=== PATIENT | female | born 1975 | race Caucasian/White ===

== ENCOUNTER 2020-05-22 18:07 | Emergency (ER) | payer SELFPAY ==
[2020-05-22 18:14] VITALS: BP 115/81; PULSE 110; RESP 20; O2SAT 89; BMI 23.0
[2020-05-22] MEDS: diphenhydrAMINE 50 mg/mL SDV 1mL IVP (18:20)
[2020-05-22] MEDS: LORazepam 2 mg/mL INJ 1 mL 1 MG IVP (18:21)
--- NOTE | 2020-05-22 18:26 | ED_ITS ---
HPI - Allergic Reaction General: Chief complaint: Allergic Reaction Stated complaint: allergic reaction Time Seen by Provider: 05/22/20 18:07 Source: patient Mode of arrival: ambulatory Limitations: no limitations History of Present Illness: HPI narrative: 45-year-old female states that she took Tessalon Perles roughly 30 minutes an hour ago and started having allergic reaction. She states she feels like her throat is tight and she is got swelling to her extremities and rash. She states she is quite pruritic. Denies any worsening or improving factors. Denies any fever. Denies any chest pain. MD complaint: allergic reaction Onset (ago): minute(s) Associated symptoms: Deny abdominal pain, nausea or vomiting Review of Systems Const: Denies: fever(s), chills, body aches or change in appetite Eyes: Denies: blurry vision or eye discomfort ENMT: Denies: throat pain or dental pain Card: Denies: chest pain Resp: Denies: dyspnea GI: Denies: abdominal pain, nausea, vomiting or diarrhea : Denies: dysuria Musc: Denies: neck pain or back pain Skin/Breast: Reports: rash and pruritus Neuro: Denies: headache(s) Psych: Denies: depression Delmar/Lymph: Denies: easy bruising All/Imm: Denies: urticaria Physical Exam Const: COMMON NORMALS: no acute distress, patient oriented x3 and healthy appearing HENMT: COMMON NORMALS: normocephalic and atraumatic HEAD & SCALP: normocephalic and atraumatic Eye: COMMON NORMALS: Equal, round and reactive pupils present and EOMs intact bilaterally PUPIL: Yes Equal, round and reactive pupils present Neck/C-Spine: COMMON NORMALS: full ROM and supple Chest: COMMONS NORMALS: normal inspection of the chest and normal palpation of entire chest wall Resp: COMMON NORMALS: normal respiratory effort, No retractions, No use of accessory muscles and clear to auscultation bilaterally AUSCULTATION: clear to auscultation bilaterally Cardio: COMMON NORMALS: regular rate, regular rhythm and No murmurs present (Cardio) RATE: regular rate RHYTHM: regular rhythm GI: COMMON NORMALS: Normal to inspection, nondistended, normoactive bowel tiago nds present, Soft to palpation, non-tender and no masses PALPATION: Yes Soft to palpation Extremity: COMMON NORMALS: normal to inspection and full ROM Neuro: COMMON NORMALS: patient oriented x3, moves all extremities and no focal motor deficits Psych: COMMON NORMALS: mental status grossly normal, Normal thought process present and cooperative MOOD & AFFECT: Yes anxious THOUGHT PROCESS: Normal thought process present Skin: COMMON NORMALS: no wounds NARRATIVE SKIN EXAM: Urticarial rash to extremities Course Vital Signs: Vital signs: Vital Signs Pulse Rate 94 05/22/20 19:45 Respiratory Rate 18 05/22/20 19:45 Blood Pressure 100/74 05/22/20 19:45 Pulse Oximetry 96 05/22/20 19:45 MDM - Allergic Reaction MDM Narrative: Medical decision making narrative: Patient presents here with an allergic reaction since resolved after epinephrine. Patient was observed here and has no rebound. We will place her on an EpiPen at home. She is stable for discharge is to follow-up and return if worsening. Discharge Plan Discharge Patient Disposition: Home Clinical Impression: Allergic reaction Qualifiers: Encounter type: initial encounter Qualified Code(s): T78.40XA - Allergy, unspecified, initial encounter Condition: Stable Prescriptions: New EpiPen 2-Lukasz 0.3 mg/0.3 mL auto-injector 0.3 mg IM Q30M PRN (Reason: anaphylaxis) Qty: 1 RF: 0 No Action ibuprofen 200 mg Capsule 200 - 400 mg PO Q4H PRN (Reason: PAIN/FEVER) RF: 0 albuterol sulfate 90 mcg/actuation HFA aerosol inhaler 2 puff INHALATION QID PRN (Reason: Wheezing) RF: 0 Discharge Orders: Discharge Order (Routine); Ordered 05/22/20 Ordered By: Eleazar Ye Discharge Diet: Advance as tolerated Discharge Activity: Resume usual activity Patient Instructions: Anaphylaxis (ED) Coding Level of Care Code ED Paper Baling Machine Operator for Chg Fwd Exam Comprehensive
[2020-05-22] MEDS: EPINEPHrine 1 mg/mL INJ 0.5 MG IM (18:41)
[2020-05-22 19:45] VITALS: BP 100/74; PULSE 94; RESP 18; O2SAT 96
== END 2020-05-22 20:16 | disposition home or self-care (01) ==
PROVIDERS: Emergency Provider Emergency Medicine
DX: T78.40XA Allergy, unspecified, initial encounter (principal)
CPT/HCPCS: 12345; 96372; 96374; 96375; 99282; 99283; J0171; J1200; J2060; J2930

== ENCOUNTER 2020-06-13 01:44 | Inpatient (IN) | payer SELFPAY ==
[2020-06-13] VITALS (30 sets, daily range): BP systolic 91–150; BP diastolic 57–92; PULSE 66–95; RESP 11–26; TEMP 36.4–37; O2SAT 95–100; BMI 29.7
--- NOTE | 2020-06-13 01:58 | XRR_ITS ---
PROCEDURE INFORMATION: Exam: XR Chest, 1 View Exam date and time: 06/13/2020 2:45 AM Age: 45 years old Clinical indication: Other: Overdose TECHNIQUE: Imaging protocol: XR of the chest Views: 1 view. COMPARISON: No relevant prior studies available. FINDINGS: Lungs: The lungs are clear bilaterally. Pulmonary vasculature within normal limits. Pleural space: No visible pneumothorax or pleural effusion. Heart/Mediastinum: Cardiomediastinal silhouette contour within normal limits. Bones/joints: No emergent findings identified. XR/XR chest 1V portable [id number] IMPRESSION: 1. No radiographic findings of acute cardiopulmonary disease.
--- NOTE | 2020-06-13 01:59 | ECG_ITS ---
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 Measurements Intervals Gering Rate: 79 P: 76 GA: 174 QRS: 50 QRSD: 80 T: 75 QT: 364 QTc: 418 Interpretive Statements SINUS RHYTHM No previous ECG available for comparison Electronically Signed On 06-13-2020 17:56:23 CDT by Sarah Hensley M.D. [id number]
--- NOTE | 2020-06-13 02:12 | ED_ITS ---
HPI - Overdose General: Chief Complaint: Overdose Stated Complaint: poss overdose Time Seen by Provider: 06/13/20 01:58 Source: family and police Mode of arrival: ambulatory Limitations: altered mental status History of Present Illness: HPI Narrative: Marnie is a 45-year-old female who comes in with a reported overdose by her fianc?. Patient told him that she took 12 Tylenol PM tonight. He is uncertain whether she took this at midnight or 1 AM. He believes that she may have been trying to kill herself. He does not believe she is been drinking tonight and he does not believe she is used any illicit drugs. Patient is completely uncooperative for us and police had to bring her into the hospital. Patient will not give us any history. Her GCS at times is 15 as she seems alert and oriented to things going on around her with spontaneous eye opening and moving all extremities but then when left alone she drifts off back to sleep but is easily stimulated. Patient is not cooperative and is lashing out trying to hit staff and others so she will be placed in a restraint bed for protection of herself and others. Review of Systems General: Reports: ROS unobtainable due to mental status Physical Exam Const: EXAM LIMITATIONS: altered mental status GENERAL APPEARANCE: combative and lethargic ORIENTATION/CONSCIOUSNESS: Yes lethargic OTHER: When stimulated the patient is agitated and combative trying to strike others but when left alone becomes lethargic and goes to sleep HENMT: COMMON NORMALS: normocephalic, atraumatic, EAC's normal, Normal external nose present and Normal nasal mucous membranes and turbinates present HEAD & SCALP: normocephalic and atraumatic NOSE: Normal external nose present and Normal nasal mucous membranes and turbinates present EXTERNAL AUDITORY CANAL: EAC's normal Eye: COMMON NORMALS: Equal, round and reactive pupils present, EOMs intact bilaterally and no scleral icterus PUPIL: Yes Equal, round and reactive pupils present Neck/C-Spine: COMMON NORMALS: full ROM, no lymphadenopathy, supple, no meningeal signs and no JVD Chest: COMMONS NORMALS: normal inspection of the chest and normal palpation of entire chest wall Resp: COMMON NORMALS: normal respiratory effort, No retractions, No use of accessory muscles, clear to auscultation bilaterally and percussion normal AUSCULTATION: clear to auscultation bilaterally, no crackles, no rales, no rhonchi and no wheezes PERCUSSION: percussion normal Cardio: COMMON NORMALS: no JVD, regular rate, regular rhythm, S1 normal heart sound present, S2 normal heart sound present, No gallops present (Cardio), No clicks present (Cardio), No murmurs present (Cardio) and No rub (Cardio) RATE: regular rate RHYTHM: regular rhythm HEART SOUNDS: S1 normal heart sound present and S2 normal heart sound present GI: COMMON NORMALS: Normal to inspection, nondistended, normoactive bowel sounds present, Soft to palpation, non-tender, No hepatosplenomegaly present and no masses PALPATION: Yes Soft to palpation and Yes No hepatosplenomegaly present Extremity: COMMON NORMALS: full ROM, capillary refill normal, no joint enlargement, no clubbing, cyanosis or edema, no calf tenderness and no pedal edema Neuro: FIORDALIZA COMA SCALE: document GCS findings Fiordaliza coma scale eye opening: To sound Fiordaliza coma scale verbal response: Confused [place] coma scale motor response: Localising [place] coma scale total score: 12 SENSORIUM/ORIENTATION: Yes lethargic MENINGEAL SIGNS: Yes no meningeal signs Course Vital Signs: Vital signs: Vital Signs Temperature 97.6 F 06/13/20 01:54 Pulse Rate 95 06/13/20 04:11 Respiratory Rate 16 06/13/20 04:11 Blood Pressure 91/57 06/13/20 04:11 Pulse Oximetry 95 06/13/20 04:11 MDM - Overdose MDM Narrative: Medical decision making narrative: [address] is a 45-year-old female who was supposedly overdosed on Tylenol PM's. The case was immediately discussed with poison control who felt the patient would need a 4- hour Tylenol level and it was reviewed with them it is 134 and coming down from her 2-hour level and they believe that she can be cleared from a Tylenol toxicity perspective. A 5 AM level as the patient's did not know if she took this at 12 or 1 AM is pending and Benadryl may cause slow transit but I doubt sugar level will go up but we will still check this. He does not believe that she took any illicit drugs but she does test positive for multiple illicit drugs including opiates and benzodiazepines which could be causing her sedation. She continues to have a patent airway with a GCS of 14-12. She arouses to voice and she will speak but not answer questions so we cannot ascertain if she is confused and she will follow some basic commands. I have reviewed the case with Dr. De Leon who agrees to come to admit the patient to the ICU until she is medically cleared and will consult Dr. Boyle for transfer to the MPU for suicidal ideation after this is completed. The patient has been placed under 96-hour hold. Lab Data: Attestation: I reviewed the patient's lab results. Labs: Lab Results 06/13/20 06/13/20 06/13/20 Range/Units 02:06 02:14 02:14 WBC (4.0-10.0) 10^3/ uL RBC (4.1-5.3) 10^6/u L Hgb (11.5-15.3) g/dL Hct (37.0-47.0) % MCV (81-99) fL MCH (28.0-34.0) pg MCHC (30.0-36.0) g/dL RDW (12.1-15.1) % Plt Count (130-400) 10^3/c mm MPV (7.4-10.4) fL Neut % (Auto) % Lymph % (Auto) % [place] % (Auto) % Eos % (Auto) % Baso % (Auto) % Neut # (Auto) (1.8-7.7) 10^3/u L Lymph # (Auto) (0.8-4.8) 10^3/u L [place] # (Auto) (0.2-0.9) 10^3/u L Eos # (Auto) (0.0-0.8) 10^3/u L Baso # (Auto) (0.0-0.1) 10^3/u L Nucleated RBC % (a uto) % Nucleated RBCs # /100WBC PT (12.1-14.9) SECO NDS INR (0.8-1.2) APTT (23.9-36.7) SECO NDS Specimen Type Arterial Sample Site Brachial, left ABG pH 7.41 (7.35-7.45) ABG pCO2 33.9 L (35-45) mmHg ABG pO2 86.9 (80.0-100.0) mmH g ABG HCO3 21.2 L (22-26) mmol/L ABG O2 Saturation 97.8 ABG Base Excess -2.8 L (-2.0-2.0) mmol/ L Red Test N/a A-a O2 Gradient 2.5 L (5-10) mmHg Hematocrit 40.8 (37-47) % Hgb O2 Saturation 92.5 L (95-100) % Carboxyhemoglobin 4.9 (0.4-20.1) %THgb Methemoglobin 0.5 (0.4-1.5) % Total Hemoglobin 13.3 (12-16) g/dL Sodium 140.0 (131-143) mmol/L Potassium 3.4 L (3.5-5.0) mmol/L Glucose 118.0 H (70-115) mg/dL Ionized Calcium 1.2 (1.1-1.4) mmol/L O2 Delivery Device Room air FiO2 21.0 % Roller Skates Assembler ID Harkr Chloride (98-107) mmol/L Carbon Dioxide (22-29) mmol/L Anion Gap (5-19) BUN (6-20) mg/dL Creatinine (0.5-0.9) mg/dL GFR Calculation (90-130) mL/min Calculated Osmolal ity (285-295) mOsm/k g Calcium (8.5-10.5) mg/dL Magnesium (1.7-2.3) mg/dL Total Bilirubin (0.15-1.2) mg/dL AST (0-32) U/L ALT (0-33) U/L Alkaline Phosphata se (35-105) IU/L Creatine Kinase (26-192) U/L Troponin T Baselin e (0-10) ng/L Troponin T 120 Min [place] (0-10) ng/L Delta Troponin T (0-10) ABS# Total Protein (6.6-8.7) g/dL Albumin (3.5-5.2) g/dL Globulin (1.3-4.6) g/dL TSH (0.27-4.20) uIU/ mL HCG, Qual (Negative) Urine Color Yellow (Yellow) Urine Appearance Clear (CLEAR) Urine pH 5 (5-7) Ur Specific Gravit y 1.030 (1.005-1.030) Urine Protein Neg (Negative) Urine Glucose (UA) Norm (Normal) Urine Ketones Negative (Negative) Urine Blood Neg (Negative) Urine Nitrate Negative (Negative) Urine Bilirubin Neg (Negative) Urine Urobilinogen 1 H (Negative) mg/dL Ur Leukocyte Marisela ase Negative (Negative) Salicylates (3-10) mg/dL Urine Opiates Scre en Positive H (Negative) ng/mL Acetaminophen (10-30) ug/mL Ur Barbiturates Sc reen Negative (Negative) ng/mL Phenytoin (10-20) ug/mL Valproic Acid (50-100) ug/mL Carbamazepine (4.0-12.0) ug/mL Ur Phencyclidine S crn Negative (Negative) ng/mL Ur Amphetamines Sc reen Positive H (Negative) ng/mL U Benzodiazepines Scrn Positive H (Negative) ng/mL [place] (0.6-1.2) mmol/L Urine Cocaine Scre en Negative (Negative) ng/mL U Marijuana (THC) Screen Negative (Negative) ng/mL Ethyl Alcohol (0-10) mg/dL Serum Ketones (Negative) 06/13/20 06/13/20 06/13/20 Range/Units 02:15 02:15 02:15 WBC 10.4 H (4.0-10.0) 10^3/ uL RBC 4.69 (4.1-5.3) 10^6/u L Hgb 14.1 (11.5-15.3) g/dL Hct 42.8 (37.0-47.0) % MCV 91.3 (81-99) fL MCH 30.1 (28.0-34.0) pg MCHC 32.9 (30.0-36.0) g/dL RDW 12.6 (12.1-15.1) % Plt Count 321 (130-400) 10^3/c mm MPV 10.8 H (7.4-10.4) fL Neut % (Auto) 52.1 % Lymph % (Auto) 38.5 % [place] % (Auto) 6.5 % Eos % (Auto) 1.9 % Baso % (Auto) 0.7 % Neut # (Auto) 5.42 (1.8-7.7) 10^3/u L Lymph # (Auto) 4.0 (0.8-4.8) 10^3/u L [place] # (Auto) 0.7 (0.2-0.9) 10^3/u L Eos # (Auto) 0.2 (0.0-0.8) 10^3/u L Baso # (Auto) 0.1 (0.0-0.1) 10^3/u L Nucleated RBC % (a uto) 0 % Nucleated RBCs # 0.0 /100WBC PT 12.80 (12.1-14.9) SECO NDS INR 0.94 (0.8-1.2) APTT 26.0 (23.9-36.7) SECO NDS Specimen Type Sample Site ABG pH (7.35-7.45) ABG pCO2 (35-45) mmHg ABG pO2 (80.0-100.0) mmH g ABG HCO3 (22-26) mmol/L ABG O2 Saturation ABG Base Excess (-2.0-2.0) mmol/ L Red Test A-a O2 Gradient (5-10) mmHg Hematocrit (37-47) % Hgb O2 Saturation (95-100) % Carboxyhemoglobin (0.4-20.1) %THgb Methemoglobin (0.4-1.5) % Total Hemoglobin (12-16) g/dL Sodium 138 (131-143) mmol/L Potassium 3.9 (3.5-5.0) mmol/L Glucose 113 (70-115) mg/dL Ionized Calcium (1.1-1.4) mmol/L O2 Delivery Device FiO2 % Roller Skates Assembler ID Chloride 103 (98-107) mmol/L Carbon Dioxide 20 L (22-29) mmol/L Anion Gap 18.9 (5-19) BUN 19 (6-20) mg/dL Creatinine 0.8 (0.5-0.9) mg/dL GFR Calculation 76.9 L (90-130) mL/min Calculated Osmolal ity 289 (285-295) mOsm/k g Calcium 9.4 (8.5-10.5) mg/dL Magnesium 1.9 (1.7-2.3) mg/dL Total Bilirubin 0.2 (0.15-1.2) mg/dL AST 22 (0-32) U/L ALT 20 (0-33) U/L Alkaline Phosphata se 99 (35-105) IU/L Creatine Kinase 136 (26-192) U/L Troponin T Baselin e (0-10) ng/L Troponin T 120 Min [place] (0-10) ng/L Delta Troponin T (0-10) ABS# Total Protein 7.1 (6.6-8.7) g/dL Albumin 4.4 (3.5-5.2) g/dL Globulin 2.7 (1.3-4.6) g/dL TSH 1.90 (0.27-4.20) uIU/ mL HCG, Qual (Negative) Urine Color (Yellow) Urine Appearance (CLEAR) Urine pH (5-7) Ur Specific Gravit y (1.005-1.030) Urine Protein (Negative) Urine Glucose (UA) (Normal) Urine Ketones (Negative) Urine Blood (Negative) Urine Nitrate (Negative) Urine Bilirubin (Negative) Urine Urobilinogen (Negative) mg/dL Ur Leukocyte Marisela ase (Negative) Salicylates < 0.3 L (3-10) mg/dL Urine Opiates Scre en (Negative) ng/mL Acetaminophen 150.4 H* (10-30) ug/mL Ur Barbiturates Sc reen (Negative) ng/mL Phenytoin (10-20) ug/mL Valproic Acid (50-100) ug/mL Carbamazepine (4.0-12.0) ug/mL Ur Phencyclidine S crn (Negative) ng/mL Ur Amphetamines Sc reen (Negative) ng/mL U Benzodiazepines Scrn (Negative) ng/mL [place] (0.6-1.2) mmol/L Urine Cocaine Scre en (Negative) ng/mL U Marijuana (THC) Screen (Negative) ng/mL Ethyl Alcohol < 10 (0-10) mg/dL Serum Ketones Negative (Negative) 06/13/20 06/13/20 06/13/20 Range/Units 02:15 02:15 04:10 WBC (4.0-10.0) 10^3/ uL RBC (4.1-5.3) 10^6/u L Hgb (11.5-15.3) g/dL Hct (37.0-47.0) % MCV (81-99) fL MCH (28.0-34.0) pg MCHC (30.0-36.0) g/dL RDW (12.1-15.1) % Plt Count (130-400) 10^3/c mm MPV (7.4-10.4) fL Neut % (Auto) % Lymph % (Auto) % [place] % (Auto) % Eos % (Auto) % Baso % (Auto) % Neut # (Auto) (1.8-7.7) 10^3/u L Lymph # (Auto) (0.8-4.8) 10^3/u L [place] # (Auto) (0.2-0.9) 10^3/u L Eos # (Auto) (0.0-0.8) 10^3/u L Baso # (Auto) (0.0-0.1) 10^3/u L Nucleated RBC % (a uto) % Nucleated RBCs # /100WBC PT (12.1-14.9) SECO NDS INR (0.8-1.2) APTT (23.9-36.7) SECO NDS Specimen Type Sample Site ABG pH (7.35-7.45) ABG pCO2 (35-45) mmHg ABG pO2 (80.0-100.0) mmH g ABG HCO3 (22-26) mmol/L ABG O2 Saturation ABG Base Excess (-2.0-2.0) mmol/ L Red Test A-a O2 Gradient (5-10) mmHg Hematocrit (37-47) % Hgb O2 Saturation (95-100) % Carboxyhemoglobin (0.4-20.1) %THgb Methemoglobin (0.4-1.5) % Total Hemoglobin (12-16) g/dL Sodium (131-143) mmol/L Potassium (3.5-5.0) mmol/L Glucose (70-115) mg/dL Ionized Calcium (1.1-1.4) mmol/L O2 Delivery Device FiO2 % Roller Skates Assembler ID Chloride (98-107) mmol/L Carbon Dioxide (22-29) mmol/L Anion Gap (5-19) BUN (6-20) mg/dL Creatinine (0.5-0.9) mg/dL GFR Calculation (90-130) mL/min Calculated Osmolal ity (285-295) mOsm/k g Calcium (8.5-10.5) mg/dL Magnesium (1.7-2.3) mg/dL Total Bilirubin (0.15-1.2) mg/dL AST (0-32) U/L ALT (0-33) U/L Alkaline Phosphata se (35-105) IU/L Creatine Kinase (26-192) U/L Troponin T Baselin e 9 (0-10) ng/L Troponin T 120 Min [place] (0-10) ng/L Delta Troponin T (0-10) ABS# Total Protein (6.6-8.7) g/dL Albumin (3.5-5.2) g/dL Globulin (1.3-4.6) g/dL TSH (0.27-4.20) uIU/ mL HCG, Qual Negative (Negative) Urine Color (Yellow) Urine Appearance (CLEAR) Urine pH (5-7) Ur Specific Gravit y (1.005-1.030) Urine Protein (Negative) Urine Glucose (UA) (Normal) Urine Ketones (Negative) Urine Blood (Negative) Urine Nitrate (Negative) Urine Bilirubin (Negative) Urine Urobilinogen (Negative) mg/dL Ur Leukocyte Marisela ase (Negative) Salicylates (3-10) mg/dL Urine Opiates Scre en (Negative) ng/mL Acetaminophen (10-30) ug/mL Ur Barbiturates Sc reen (Negative) ng/mL Phenytoin 1.1 L (10-20) ug/mL Valproic Acid 2.8 L (50-100) ug/mL Carbamazepine 2.0 L (4.0-12.0) ug/mL Ur Phencyclidine S crn (Negative) ng/mL Ur Amphetamines Sc reen (Negative) ng/mL U Benzodiazepines Scrn (Negative) ng/mL [place] 0.1 L (0.6-1.2) mmol/L Urine Cocaine Scre en (Negative) ng/mL U Marijuana (THC) Screen (Negative) ng/mL Ethyl Alcohol (0-10) mg/dL Serum Ketones (Negative) 06/13/20 06/13/20 Range/Units 04:10 04:10 WBC (4.0-10.0) 10^3/ uL RBC (4.1-5.3) 10^6/u L Hgb (11.5-15.3) g/dL Hct (37.0-47.0) % MCV (81-99) fL MCH (28.0-34.0) pg MCHC (30.0-36.0) g/dL RDW (12.1-15.1) % Plt Count (130-400) 10^3/c mm MPV (7.4-10.4) fL Neut % (Auto) % Lymph % (Auto) % [place] % (Auto) % Eos % (Auto) % Baso % (Auto) % Neut # (Auto) (1.8-7.7) 10^3/u L Lymph # (Auto) (0.8-4.8) 10^3/u L [place] # (Auto) (0.2-0.9) 10^3/u L Eos # (Auto) (0.0-0.8) 10^3/u L Baso # (Auto) (0.0-0.1) 10^3/u L Nucleated RBC % (a uto) % Nucleated RBCs # /100WBC PT (12.1-14.9) SECO NDS INR (0.8-1.2) APTT (23.9-36.7) SECO NDS Specimen Type Sample Site ABG pH (7.35-7.45) ABG pCO2 (35-45) mmHg ABG pO2 (80.0-100.0) mmH g ABG HCO3 (22-26) mmol/L ABG O2 Saturation ABG Base Excess (-2.0-2.0) mmol/ L Red Test A-a O2 Gradient (5-10) mmHg Hematocrit (37-47) % Hgb O2 Saturation (95-100) % Carboxyhemoglobin (0.4-20.1) %THgb Methemoglobin (0.4-1.5) % Total Hemoglobin (12-16) g/dL Sodium (131-143) mmol/L Potassium (3.5-5.0) mmol/L Glucose (70-115) mg/dL Ionized Calcium (1.1-1.4) mmol/L O2 Delivery Device FiO2 % Roller Skates Assembler ID Chloride (98-107) mmol/L Carbon Dioxide (22-29) mmol/L Anion Gap (5-19) BUN (6-20) mg/dL Creatinine (0.5-0.9) mg/dL GFR Calculation (90-130) mL/min Calculated Osmolal ity (285-295) mOsm/k g Calcium (8.5-10.5) mg/dL Magnesium (1.7-2.3) mg/dL Total Bilirubin (0.15-1.2) mg/dL AST (0-32) U/L ALT (0-33) U/L Alkaline Phosphata se (35-105) IU/L Creatine Kinase (26-192) U/L Troponin T Baselin e (0-10) ng/L Troponin T 120 Min [place] 9.35 (0-10) ng/L Delta Troponin T 0.35 (0-10) ABS# Total Protein (6.6-8.7) g/dL Albumin (3.5-5.2) g/dL Globulin (1.3-4.6) g/dL TSH (0.27-4.20) uIU/ mL HCG, Qual (Negative) Urine Color (Yellow) Urine Appearance (CLEAR) Urine pH (5-7) Ur Specific Gravit y (1.005-1.030) Urine Protein (Negative) Urine Glucose (UA) (Normal) Urine Ketones (Negative) Urine Blood (Negative) Urine Nitrate (Negative) Urine Bilirubin (Negative) Urine Urobilinogen (Negative) mg/dL Ur Leukocyte Marisela ase (Negative) Salicylates (3-10) mg/dL Urine Opiates Scre en (Negative) ng/mL Acetaminophen 134.1 H* (10-30) ug/mL Ur Barbiturates Sc reen (Negative) ng/mL Phenytoin (10-20) ug/mL Valproic Acid (50-100) ug/mL Carbamazepine (4.0-12.0) ug/mL Ur Phencyclidine S crn (Negative) ng/mL Ur Amphetamines Sc reen (Negative) ng/mL U Benzodiazepines Scrn (Negative) ng/mL [place] (0.6-1.2) mmol/L Urine Cocaine Scre en (Negative) ng/mL U Marijuana (THC) Screen (Negative) ng/mL Ethyl Alcohol (0-10) mg/dL Serum Ketones (Negative) Imaging Data^: CT Head: Radiologist's impression: [address] [id number] [address] Scan Report Signed Patient: Marnie Hampton Unit #: [id number] : 1975 Age/Sex: 45 / F ADM Date: 06/13/20 Loc: ER Room/Bed: Attending Dr: Ordering Provider/Ordering MD: Sonia Rothman DO Date of Service: 06/13/20 Procedure(s): CT head wo con* [id number] Accession Number(s): [id number] Report Number: [id number] PROCEDURE INFORMATION: Exam: CT Head Without Contrast Exam date and time: 06/13/2020 2:11 AM Age: 45 years old Clinical indication: Altered mental status/memory loss; Confusion or disorientation; Prior surgery TECHNIQUE: Imaging protocol: Computed tomography of the head without contrast. Radiation optimization: All CT scans at this facility use at least one of these dose optimization techniques: automated exposure control; mA and/or kV adjustment per patient size (includes targeted exams where dose is matched to clinical indication); or iterative reconstruction. COMPARISON: CT head wo con* [id number] 05/27/2018 8:40 PM RADIATION DOSE METRICS: Total DLP (mGy-cm): 824.66 FINDINGS: Brain: There are no areas of abnormally increased or decreased brain parenchymal attenuation. No abnormal intra-axial or extra-axial fluid collections are identified. There is no midline shift. No intracranial hemorrhage identified. Ventricles: The ventricular system is within normal limits for size and configuration. Bones/joints: Status post left mastoidectomy. Sinuses: Visualized sinuses are unremarkable. No fluid levels. Mastoid air cells: Status post left mastoidectomy. Soft tissues: Unremarkable. CT/CT head wo con* [id number] IMPRESSION: 1. No acute intracranial abnormality identified. Radiation Dose CTDIVOL = (mGy): DLP = 824.66 (mGy-cm) Dictated By: Olivier Ulrich MD Signed By: Olivier Ulrich MD Signed Date/Time: 06/13/20358 DD/ 7 CXR: Attestation: I personally reviewed and interpreted this imaging study as follows: My impression: No acute cardiopulmonary findings. EKG Data^: EKG 1: Attestation: I personally reviewed and interpreted this EKG as follows: EKG interpretation date: 06/13/20 EKG interpretation time: 02:26 Interpretation: Normal sinus rhythm at 79 beats a minute, normal axis, no blocks, normal intervals, nonspecific ST and T wave changes. Discharge Plan Discharge Patient Disposition: Admitted As Inpatient Clinical Impression: Drug overdose Qualifiers: Encounter type: initial encounter Injury intent: intentional self-harm Qualified Code(s): T50.902A - Poisoning by unspecified drugs, medicaments and biological substances, intentional self-harm, initial encounter Condition: Stable Coding Level of Care Code ED Software Sales Representative for Chg Fwd Exam Comprehensive
[2020-06-13 02:16] LABS: ABG PCO2 33.9 mmHg (35-45); ABG PH Result 7.41 (7.35-7.45); Alveolar-Arterial Oxygen Gradi 2.5 mmHg (5-10); Arterial Blood Gas Hematocrit 40.8 % (37-47); Base Excess ABG -2.8 mmol/L (-2.0-2.0); Blood Gas Operator Identificat HARKR; Blood Gas Sample Site Brachial, left; Blood Gas Sample Type Arterial; Carboxyhemoglobin 4.9 %THgb (0.4-20.1); HCO3 ABG 21.2 mmol/L (22-26); HGB O2 Sat 92.5 % (95-100); Ionized Calcium Level - ABG 1.2 mmol/L (1.1-1.4); Methemoglobin 0.5 % (0.4-1.5); Oxygen Device ROOM AIR; Oxygen Saturation ABG 97.8; PO2 ABG 86.9 mmHg (80.0-100.0); Potassium Level - ABG 3.4 mmol/L (3.5-5.0); Total Hemoglobin 13.3 g/dL (12-16)
[2020-06-13 02:44] LABS: INR 0.94 (0.8-1.2)
[2020-06-13 02:46] LABS: HCG, Serum Qual Negative (Negative); Ketone (Acetest) Serum Negative (Negative)
[2020-06-13 02:47] LABS: Basophils # 0.1 10^3/uL (0.0-0.1); Basophils % 0.7 %; Eosinophils # 0.2 10^3/uL (0.0-0.8); Eosinophils % 1.9 %; Hematocrit 42.8 % (37.0-47.0); Hemoglobin 14.1 g/dL (11.5-15.3); Lymphocytes % 38.5 %; Mean Corpuscular HGB Conc 32.9 g/dL (30.0-36.0); Mean Corpuscular Hemoglobin 30.1 pg (28.0-34.0); Mean Corpuscular Volume 91.3 fL (81-99); Mean Platelet Volume 10.8 fL (7.4-10.4); Monocytes # 0.7 10^3/uL (0.2-0.9); Monocytes % 6.5 %; Neutrophils # 5.42 10^3/uL (1.8-7.7); Neutrophils % 52.1 %; Nucleated Red Blood Cells % 0 %; Platelet Count 321 10^3/cmm (130-400); Red Blood Count 4.69 10^6/uL (4.1-5.3); Red Cell Distribution Width 12.6 % (12.1-15.1); White Blood Count 10.4 10^3/uL (4.0-10.0)
[2020-06-13 02:54] LABS: Add Urine Microscopic? NO
[2020-06-13 02:56] LABS: Troponin(5th) Baseline 9 ng/L (0-10)
[2020-06-13 03:03] LABS: Bilirubin Urine Neg (Negative); Blood Urine Neg (Negative); Glucose Urine UA Norm (Normal); Ketones Urine Negative (Negative); Leukocyte Esterase Urine Negative (Negative); Nitrate Urine Negative (Negative); Protein Urine Neg (Negative); Urine Appearance Clear (CLEAR); Urine Color Yellow (Yellow); Urobilinogen Urine 1 mg/dL (Negative); pH Urine 5 (5-7)
[2020-06-13 03:03] LABS: Alanine Aminotransferase 20 U/L (0-33); Albumin Level 4.4 g/dL (3.5-5.2); Alkaline Phosphatase 99 IU/L (35-105); Blood Urea Nitrogen 19 mg/dL (6-20); Calcium 9.4 mg/dL (8.5-10.5); Carbon Dioxide 20 mmol/L (22-29); Chloride 103 mmol/L (98-107); Creatine Phosphokinase 136 U/L (26-192); Globulin 2.7 g/dL (1.3-4.6); Glomerular Filtration Rate 76.9 mL/min (90-130); Glucose 113 mg/dL (65-115); Magnesium 1.9 mg/dL (1.7-2.3); Osmolality Calculated 289 mOsm/kg (285-295); Sodium 138 mmol/L (136-145); Total Bilirubin 0.2 mg/dL (0.15-1.2); Total Protein 7.1 g/dL (6.6-8.7)
[2020-06-13 03:04] LABS: Amphetamines Screen Urine Positive (Negative); Barbiturates Screen Urine Negative (Negative); Benzodiazepines Screen Urine Positive (Negative); Cocaine Screen Urine Negative (Negative); Opiate Screen Urine Positive (Negative); PCP Screen Urine Negative (Negative); THC Screen Urine Negative (Negative)
[2020-06-13] MEDS: sodium chloride 0.9% 1,000 ML 999 ML IV (03:06)
[2020-06-13] MEDS: sodium chloride 0.9% 1,000 ML 100 ML IV (03:06)
--- NOTE | 2020-06-13 03:06 | PC.NURSE ---
This rn was in the room, when PD brought the patient in, patient was combative and uncooperative, Dr. Rothman gave order for restraint bed, patient was restrained, IV and blood drawn, Moustapha started with dentist/owner, patient taken to CT, patient is now sleeping comfortable in restraint bed
[2020-06-13 03:09] LABS: Alcohol Level < 10 mg/dL (0-10); Salicylate < 0.3 mg/dL (3-10)
[2020-06-13 03:10] LABS: Anion Gap 18.9 (5-19); Aspartate Amino Transferase 22 U/L (0-32); Potassium 3.9 mmol/L (3.5-5.1)
[2020-06-13 03:11] LABS: Acetaminophen 150.4 ug/mL (10-30)
--- NOTE | 2020-06-13 04:10 | PC.SOCIAL ---
Unable to do initial psych assessment in the ED. Patient is currently in a restraint bed after being aggressive and uncooperative with staff. Her boyfriend Ann Gamez whom she lives with completed an affidavit. He reported patient acting strangely and he wondered if she had taken something.
[2020-06-13 04:35] LABS: Troponin 5 2HR 9.35 ng/L (0-10); Troponin 5 2HR Delta 0.35 ABS# (0-10)
[2020-06-13 04:36] LABS: Acetaminophen 134.1 ug/mL (10-30)
[2020-06-13 04:45] LABS: Lithium 0.1 mmol/L (0.6-1.2); Phenytoin Dilantin 1.1 ug/mL (10-20); Valproic Acid Level 2.8 ug/mL (50-100)
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
[2020-06-13] MEDS: naloxone 0.4 mg/ml SDV IVP (05:40)
--- NOTE | 2020-06-13 06:00 | PC.NURSE ---
Admit Note Arrived to ICU via ER lesli at this time. Pt drowsy and withdrawls from staff with any stimulation. Tremors noted, yelling out im cold . Pt not cooperative with placing on monitor, does not follow nursing staff commands. Seizure, aspiration, and SI precautions in place. 1:1 sitter at bedside.
--- NOTE | 2020-06-13 06:14 | PC.NURSE ---
Neuro Assessment assessment limited. pt is drowsy and non-cooperative and will not follow commands. awakens to verbal and touch stimulation. Observed movements of all extremities. Withdraws from nurse, curls up in position. tremors observed when stimulated.
[2020-06-13 06:18] LABS: Acetaminophen 110.3 ug/mL (10-30)
[2020-06-13] MEDS: dextrose 5%-sod chloride 0.9% 1,000 ML 75 ML IV ×2 (06:28→18:23)
[2020-06-13] MEDS: enoxaparin 40 mg/0.4 mL Syringe SUBCUT (06:28)
[2020-06-13 07:31] LABS: Thyroid Stimulating Hormone 1.27 uIU/mL (0.27-4.20)
[2020-06-13 08:23] LABS: Procalcitonin 0.03 ng/mL (0-0.5)
[2020-06-13 08:33] LABS: Creatine Phosphokinase 105 U/L (26-192)
--- NOTE | 2020-06-13 09:20 | PC.NURSE ---
unable to do neuro assessment d/t. pt. being uncooperative. lab in this am. blood drawn with much resistance. moves all ext. but doesnt follow commands at this time.
--- NOTE | 2020-06-13 10:00 | ECG_ITS ---
[facility] Test Date: 2020-06-13 Pat Name: Marnie Hampton Department: Room: [facility] Gender: Female Supervisor Loading: : 1975 Requested By: William Ulrich Order Number: [id number] Vianey MD: Sarah Hensley M.D. Measurements Intervals [place] Rate: 67 P: 72 MN: 207 QRS: 43 QRSD: 77 T: 76 QT: 377 QTc: 400 Interpretive Statements SINUS RHYTHM Compared to ECG 06/13/2020 02:26:55 No significant changes Electronically Signed On 06-13-2020 18:06:00 CDT by Sarah Hensley M.D. [id number]
[2020-06-13 10:12] LABS: Troponin 5 6HR 8.85 ng/L (0-10)
[2020-06-13 10:27] LABS: Troponin 5 6HR Delta -0.15 ng/L (0-12)
--- NOTE | 2020-06-13 10:45 | PC.NURSE ---
continues not following commands. does move all extrems. wont talk, or open eyes.
--- NOTE | 2020-06-13 11:50 | PC.NURSE ---
will open eyes now. back to sleep quickly. denies knowing what happened, but does know she is in hospital
--- NOTE | 2020-06-13 12:02 | PM.PN ---
Subjective Subjective: Interval history: She appears calm, but is actively sleeping, and to try to wake her up, pulls back and covers herself more with the blanket. Did not wake up to her name or shoulder shake. Vitals/I&O/Wt Last Vital Signs Temp 97.7 F 06/13/20 05:45 Pulse 75 06/13/20 10:00 Resp 15 06/13/20 10:00 BP 115/67 06/13/20 10:00 Pulse Ox 97 06/13/20 10:00 06/12/20 06/13/20 06/13/20 22:59 06:59 14:59 Intake Total 1000 / 1000 Balance 1000 / 1000 Weight last 48 hrs Weight 75.977 kg Physical Exam Const: COMMON NORMALS: no acute distress GENERAL APPEARANCE: disheveled (Feet are soiled from walking barefoot. ) OTHER: No seizure like activity. No tremor. HENMT: COMMON NORMALS: oropharynx normal Eye: OTHER: Squints her eyes shut when attempting to look at her pupils. Neck/C-Spine: COMMON NORMALS: no JVD Resp: COMMON NORMALS: normal respiratory effort and clear to auscultation bilaterally AUSCULTATION: clear to auscultation bilaterally Cardio: COMMON NORMALS: no JVD, regular rhythm, S1 normal heart sound present, S2 normal heart sound present and No murmurs present (Cardio) RHYTHM: regular rhythm HEART SOUNDS: S1 normal heart sound present and S2 normal heart sound present GI: COMMON NORMALS: Normal to inspection, nondistended, normoactive bowel sounds present, Soft to palpation and non-tender PALPATION: Yes Soft to palpation Extremity: COMMON NORMALS: no joint enlargement and no pedal edema Neuro: COMMON NORMALS: moves all extremities Skin: COMMON NORMALS: no rashes or lesions noted GENERAL SKIN EXAM: no rashes or lesions noted Urinary Catheter Management^: Gerard: Cath Placed During This Visit: yes Reason for Continuing Indwelling Catheter: Accurate Measurement of Urinary Output in Critically Ill Patients Urinary Catheter Date of Insertion: 06/13/20 Urinary Catheter Time of Insertion: 02:30 Data : 06/13/20 02:15 06/13/20 02:15 A&P Assessment and plan (1) Toxic metabolic encephalopathy: I have tried both numbers we have available for her significant other Mr. Gamez, but 1 numbers disconnected, and the other number there is no answer and no answering machine. Monitor for any withdrawal given concern for benzodiazepine, opioid, and amphetamine use. At this time continue supportive care and monitoring in ICU. Vital signs are stable. Liver, kidney function is remaining good. -Acetaminophen level decreasing. Would stop monitoring. -CT of the head negative for acute abnormalities, chest x-ray unremarkable for pneumonia, UA negative for UTI, hemoglobin 14.1, INR 0.94, pH 7.41, -Bicarb is low at 20 -Suicide precautions, one-to-one sitter. Psychiatry assessment once mental status improves and able to communicate. -Neurochecks, seizure precautions, aspiration precautions -Gentle IV hydration -Monitor CBC, CMP, mag, [place] -Telemetry monitoring -Monitor respiratory status closely -Monitor GCS closely -Poison control has been contacted Sunshine Gamez [phone] -Full code -Lovenox for DVT prophylaxis Status: Acute (2) Drug overdose: Status: Acute Qualifiers: Encounter type: initial encounter Injury intent: intentional self-harm Qualified Code(s): T50.902A - Poisoning by unspecified drugs, medicaments and biological substances, intentional self-harm, initial encounter (3) Opiate overdose: Status: Acute (4) Acetaminophen overdose: Status: Acute (5) Amphetamine abuse: Status: Acute (6) Benzodiazepine abuse: Status: Acute (7) Suicide attempt: Status: Acute Attestations Medical Necessity Statement*: Continue admission for assessment and management following medication overdose in a suicide attempt, possible other drug use, monitor condition and for withdrawal in ICU, supportive care with one-to-one sitter. Coding Level of Care Code Acute Dumper Bailer Operator for Edward Chapin Diagnoses Toxic metabolic encephalopathy G92 Drug overdose T50.902A Encounter type: initial encounter Injury intent: intentional self-harm Opiate overdose T40.601A Acetaminophen overdose T39.1X1A Amphetamine abuse F15.10 Benzodiazepine abuse F13.10 Suicide attempt T14.91XA
--- NOTE | 2020-06-13 12:49 | PC.NURSE ---
pt awakened with tactile stimulation. answered [facility]. when they were called she had'nt had any scripts filled there. same was for [facility] as was listed as her preferred pharm. she also stated she didnt have any prescriptions filled.
--- NOTE | 2020-06-13 15:01 | PC.NURSE ---
unable to confirm meds at this time. [facility] had not filled any for her.
[2020-06-14] VITALS (16 sets, daily range): BP systolic 120–166; BP diastolic 75–103; PULSE 61–86; RESP 14–29; TEMP 36.4–37.2; O2SAT 96–99; BMI 29.5
--- NOTE | 2020-06-14 01:21 | P.EN_ITS ---
Event Note Event Note: Patient was examined this evening, she is alert oriented x3, answering questions appropriately, a bit drowsy as it is 12 AM, vitals within normal limits, no acute telemetry events, no seizure-like events, no aggression events, will move patient to the CSU with telemetry, suicide precautions, one-t o-one sitter
--- NOTE | 2020-06-14 02:46 | PC.NURSE ---
Patient received from ICU via bed. Report received from EMMA Alaniz. Patient resting on left side. Opens eyes to stimuli with no verbal response at present. 1:1 sitter present at bedside. Gerard catheter present and patent. No distress observed. Assessment completed as documented.
--- NOTE | 2020-06-14 06:00 | ECG_ITS ---
[facility] Test Date: 2020-06-14 Pat Name: Marnie Hampton Department: Room: 111 Gender: Female Cutting Torch Operator: : 1975 Requested By: William Ulrich Order Number: [id number] Vianey MD: Sarah Hensley M.D. Measurements Intervals [place] Rate: 69 P: 64 NM: 221 QRS: 44 QRSD: 78 T: 71 QT: 367 QTc: 395 Interpretive Statements SINUS RHYTHM WITH SINUS ARRHYTHMIA WITH FIRST DEGREE AV BLOCK Compared to ECG 06/13/2020 11:03:46 First degree AV block now present Electronically Signed On 06-14-2020 18:32:28 CDT by Sarah Hensley M.D. [id number]
[2020-06-14] MEDS: enoxaparin 40 mg/0.4 mL Syringe SUBCUT (06:02)
[2020-06-14 06:05] LABS: Basophils # 0.1 10^3/uL (0.0-0.1); Basophils % 0.7 %; Eosinophils # 0.2 10^3/uL (0.0-0.8); Eosinophils % 2.1 %; Hematocrit 39.6 % (37.0-47.0); Hemoglobin 12.6 g/dL (11.5-15.3); Lymphocytes # 2.7 10^3/uL (0.8-4.8); Lymphocytes % 35.7 %; Mean Corpuscular HGB Conc 31.8 g/dL (30.0-36.0); Mean Corpuscular Hemoglobin 29.2 pg (28.0-34.0); Mean Corpuscular Volume 91.9 fL (81-99); Mean Platelet Volume 10.4 fL (7.4-10.4); Monocytes # 0.6 10^3/uL (0.2-0.9); Monocytes % 7.5 %; Neutrophils # 4.04 10^3/uL (1.8-7.7); Neutrophils % 53.9 %; Nucleated Red Blood Cells % 0 %; Platelet Count 281 10^3/cmm (130-400); Red Blood Count 4.31 10^6/uL (4.1-5.3); Red Cell Distribution Width 12.6 % (12.1-15.1); White Blood Count 7.5 10^3/uL (4.0-10.0)
[2020-06-14 06:25] LABS: Alanine Aminotransferase 20 U/L (0-33); Albumin Level 3.3 g/dL (3.5-5.2); Alkaline Phosphatase 80 IU/L (35-105); Anion Gap 11.4 (5-19); Aspartate Amino Transferase 18 U/L (0-32); Blood Urea Nitrogen 12 mg/dL (6-20); Calcium 8.6 mg/dL (8.5-10.5); Carbon Dioxide 19 mmol/L (22-29); Chloride 109 mmol/L (98-107); Globulin 2.1 g/dL (1.3-4.6); Glomerular Filtration Rate 89.7 mL/min (90-130); Glucose 94 mg/dL (65-115); Magnesium 1.9 mg/dL (1.7-2.3); Osmolality Calculated 282 mOsm/kg (285-295); Phosphorus 2.2 mg/dL (2.5-4.5); Potassium 3.4 mmol/L (3.5-5.1); Sodium 136 mmol/L (136-145); Total Bilirubin 0.3 mg/dL (0.15-1.2); Total Protein 5.4 g/dL (6.6-8.7)
[2020-06-14 06:28] LABS: Lactic Sepsis W/Reflex 0.5 mmol/L (0.5-2.2)
--- NOTE | 2020-06-14 07:00 | XRR_ITS ---
PROCEDURE INFORMATION: Exam: XR Chest, 1 View Exam date and time: 06/13/2020 11:59 PM Age: 45 years old Clinical indication: Shortness of breath; Additional info: SOB TECHNIQUE: Imaging protocol: XR of the chest Views: 1 view. COMPARISON: CR XR chest 1V portable [id number] 06/13/2020 2:34 AM FINDINGS: Lungs: Unremarkable. No consolidation. Pleural space: Unremarkable. No pleural effusion. No pneumothorax. Heart/Mediastinum: Unremarkable. No cardiomegaly. Bones/joints: Unremarkable. XR/XR chest 1V portable [id number] IMPRESSION: No acute findings.
[2020-06-14] MEDS: dextrose 5%-sod chloride 0.9% 1,000 ML 75 ML IV (07:51)
[2020-06-14 08:13] LABS: INR 0.99 (0.8-1.2)
--- NOTE | 2020-06-14 10:00 | ECG_ITS ---
[facility] Test Date: 2020-06-14 Pat Name: Marnie Hampton Department: Room: 111 Gender: Female Upper Inspector: : 1975 Requested By: William Ulrich Order Number: [id number] Vianey MD: Sarah Hensley M.D. Measurements Intervals [place] Rate: 74 P: 71 MN: 203 QRS: 28 QRSD: 82 T: 63 QT: 363 QTc: 403 Interpretive Statements SINUS RHYTHM Compared to ECG 06/14/2020 06:04:35 Sinus arrhythmia no longer present First degree AV block no longer present Electronically Signed On 06-14-2020 18:28:41 CDT by Sarah Hensley M.D. [id number]
[2020-06-14] MEDS: potassium chloride ER 10 mEq Tablet 20 MEQ PO (11:02)
[2020-06-14 11:36] LABS: Magnesium 1.8 mg/dL (1.7-2.3); Thyroid Stimulating Hormone 0.52 uIU/mL (0.27-4.20)
[2020-06-14] MEDS: lisinopril 5 mg Tablet PO (13:26)
--- NOTE | 2020-06-14 15:30 | PC.NURSE ---
Up ad alcides to bathroom Assisted pt out of bed to go to the bathroom post godinez cath removal. Standby assist during activity. pt tolerated well the activity.
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
--- NOTE | 2020-06-14 17:26 | PC.NURSE ---
HAND-OFF REPORT TO NPU REPORT GIVEN TO EMMA FUENTES IN NPU. USHERED VIA WHEELCHAIR.
[2020-06-14] MEDS: trazodone 50 mg Tablet PO (20:45)
[2020-06-14] MEDS: hyDROXYzine 25 mg Capsule 50 MG PO (20:45)
[2020-06-15 06:00] VITALS: BP 104/76; PULSE 78; RESP 17; TEMP 37; O2SAT 96
[2020-06-15 07:00] LABS: Alanine Aminotransferase 21 U/L (0-33); Albumin Level 3.9 g/dL (3.5-5.2); Alkaline Phosphatase 93 IU/L (35-105); Anion Gap 12.7 (5-19); Aspartate Amino Transferase 17 U/L (0-32); Blood Urea Nitrogen 14 mg/dL (6-20); Calcium 9.1 mg/dL (8.5-10.5); Carbon Dioxide 21 mmol/L (22-29); Chloride 107 mmol/L (98-107); Globulin 2.5 g/dL (1.3-4.6); Glomerular Filtration Rate 107.2 mL/min (90-130); Glucose 97 mg/dL (65-115); Magnesium 1.9 mg/dL (1.7-2.3); Osmolality Calculated 284 mOsm/kg (285-295); Potassium 3.7 mmol/L (3.5-5.1); Sodium 137 mmol/L (136-145); Total Bilirubin 0.3 mg/dL (0.15-1.2); Total Protein 6.4 g/dL (6.6-8.7)
[2020-06-15 07:02] LABS: Lactic Sepsis W/Reflex 0.5 mmol/L (0.5-2.2)
[2020-06-15] MEDS: ibuprofen 200 mg Tablet PO (07:45)
[2020-06-15] MEDS: lisinopril 5 mg Tablet PO (07:49)
[2020-06-15 08:34] LABS: INR 0.91 (0.8-1.2)
--- NOTE | 2020-06-15 13:26 | NPU.GN ---
Steve Dye Robert, and Martin did not participate in Group today.
[2020-06-15 14:00] VITALS: BP 105/80; PULSE 68; RESP 18; TEMP 36.8; O2SAT 97
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
[2020-06-15] MEDS: ARIPiprazole 10 mg Tablet PO (15:19)
[2020-06-15] MEDS: sertraline 50 mg Tablet PO (15:19)
[2020-06-15] MEDS: ibuprofen 200 mg Tablet 800 MG PO (15:40)
[2020-06-15 19:44] VITALS: BP 145/84; PULSE 74; RESP 16; TEMP 36.8; O2SAT 96
[2020-06-15] MEDS: hyDROXYzine 25 mg Capsule 50 MG PO (20:31)
[2020-06-15] MEDS: trazodone 50 mg Tablet PO (20:31)
[2020-06-16 06:00] VITALS: BP 93/62; PULSE 76; RESP 16; TEMP 36.9; O2SAT 97
[2020-06-16 06:49] LABS: Lactic Sepsis W/Reflex 0.5 mmol/L (0.5-2.2)
[2020-06-16 06:52] LABS: INR 0.93 (0.8-1.2)
[2020-06-16 07:14] LABS: Alanine Aminotransferase 25 U/L (0-33); Alkaline Phosphatase 100 IU/L (35-105); Anion Gap 14.9 (5-19); Aspartate Amino Transferase 22 U/L (0-32); Blood Urea Nitrogen 15 mg/dL (6-20); Calcium 9.5 mg/dL (8.5-10.5); Carbon Dioxide 22 mmol/L (22-29); Chloride 104 mmol/L (98-107); Globulin 2.8 g/dL (1.3-4.6); Glomerular Filtration Rate 107.2 mL/min (90-130); Glucose 114 mg/dL (65-115); Magnesium 1.9 mg/dL (1.7-2.3); Osmolality Calculated 286 mOsm/kg (285-295); Phosphorus 4.3 mg/dL (2.5-4.5); Potassium 3.9 mmol/L (3.5-5.1); Sodium 137 mmol/L (136-145); Total Bilirubin 0.3 mg/dL (0.15-1.2); Total Protein 6.8 g/dL (6.6-8.7)
[2020-06-16] MEDS: ARIPiprazole 10 mg Tablet PO (08:25)
[2020-06-16] MEDS: lisinopril 5 mg Tablet PO (08:25)
[2020-06-16] MEDS: sertraline 50 mg Tablet PO (08:25)
[2020-06-16] MEDS: ibuprofen 200 mg Tablet 800 MG PO ×2 (08:25→16:21)
[2020-06-16 09:05] VITALS: PULSE 102; RESP 14; O2SAT 98
[2020-06-16 09:07] VITALS: PULSE 105
[2020-06-16] MEDS: albuterol 8 gm MDI 2 PUFF INHALATION (09:08)
[2020-06-16 13:20] VITALS: BP 112/75; PULSE 79; RESP 18; TEMP 36.5; O2SAT 98
[2020-06-16 13:49] VITALS: BP 112/75; PULSE 79; RESP 18; TEMP 36.5; O2SAT 98
--- NOTE | 2020-06-16 17:15 | PM.NPN ---
Subjective NPU Subjective: Interval history: Marnie presents today reporting that things are going a little better. She has talked to family and they are being more supportive. She continues to have some guilt surrounding her circumstances but currently endorses a plan to reconnect with services and try to get her life back on track. She endorses that she is eating okay and sleeping better and endorses really wanting to discharge. We discussed the risk benefits and alternatives of discharge tomorrow. Mental Status Exam MSE Comments: This is an overweight versus obese white female with hospital scrubs on with adequate grooming and eye contact. No abnormal movements except for improving psychomotor retardation. Cooperative with exam in mild distress. Speech was decreased rate and volume. Mood described as a little better, affect less subdued. Thought process organized. Thought content: Patient denied current suicidal or homicidal ideation, there were no delusions reported or noted, she denied any visual hallucinations but endorsed auditory hallucinations. Attention and concentration appeared intact and memory appeared mostly reliable but none were formally tested. She is alert and oriented x3. Insight and judgment appeared improving. Impulse control is impaired, but improving. Vitals/I&O/Wt Last Vital Signs Temp 97.8 F 06/16/20 20:02 Pulse 114 H 06/16/20 20:02 Resp 19 H 06/16/20 20:02 BP 126/83 06/16/20 20:02 Pulse Ox 93 06/16/20 20:02 Physical Exam Urinary Catheter Management^: Gerard: Cath Placed During This Visit: yes, but has since been removed by the nurse Reason for Continuing Indwelling Catheter: Decision to DC Catheter Urinary Catheter Date of Insertion: 06/13/20 Urinary Catheter Time of Insertion: 02:30 Date Urinary Catheter Removed: 06/14/20 Time Urinary Catheter Discontinued: 15:18 Data NPU : 06/14/20 05:36 06/16/20 06:25 A&P Additional A&P Information (1) HTN (hypertension): (2) Mobitz type 1 second degree atrioventricular block: (3) Suicide attempt: (4) Benzodiazepine abuse: (5) Amphetamine abuse: (6) Acetaminophen overdose: (7) Opiate overdose: (8) Toxic metabolic encephalopathy: (9) Drug overdose: (10) Major depressive disorder, recurrent, severe with psychotic features: This is a 45-year-old white female with a history of psychiatric treatment with limited report follow-up who presents status post intentional ingestion off of medication but endorsing openness to medication trial. 1. Continue current medication. 2. Continue every 15 minute checks for safety. 3. Encourage individual, group and milieu therapy. 4. Encourage follow-up in the sober living treatment facility at the highest level of care to which she is willing to commit. Involuntary Hold Information 96 Hour Hold: 96 Hour Involuntary Admission: Yes 96 Hour Hold Ending Date: 06/13/20 96 Hour Hold Ending Time: 05:00 Attestations NPU Medical Necessity Statement*: Inpatient hospitalization is medically necessary and the clinically appropriate intervention at this time. We will initiate/monitor medications and make changes as indicated. Likely length of stay 1-3 days. 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
[2020-06-16 20:02] VITALS: BP 126/83; PULSE 114; RESP 19; TEMP 36.6; O2SAT 93
[2020-06-17] MEDS: ibuprofen 800 mg tablet PO ×2 (01:04→07:46)
[2020-06-17] MEDS: hyDROXYzine 25 mg Capsule 50 MG PO (01:05)
[2020-06-17] MEDS: trazodone 50 mg Tablet PO (01:05)
[2020-06-17 06:00] VITALS: BP 141/96; PULSE 71; RESP 16; TEMP 36.4; O2SAT 90
[2020-06-17] MEDS: lisinopril 5 mg Tablet PO (07:46)
[2020-06-17] MEDS: ARIPiprazole 10 mg Tablet PO (07:46)
[2020-06-17] MEDS: sertraline 50 mg Tablet PO (07:46)
[2020-06-17 10:39] VITALS: BP 141/96; PULSE 71; RESP 16; TEMP 36.4; O2SAT 90
[2020-06-17 10:41] VITALS: PULSE 100; RESP 16; O2SAT 95
[2020-06-17] MEDS: albuterol 8 gm MDI 2 PUFF INHALATION (10:41)
[2020-06-17 10:43] VITALS: PULSE 100
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
== END 2020-06-17 11:46 | disposition home or self-care (01) | DRG 917 ==
LOC: ER 04:58 → ICU 05:16 → CSU 06-14 02:34 → NP 06-14 17:20
PROVIDERS: Emergency Medicine; Internal Medicine; Admitting Provider Family Medicine; Visit Provider Psychiatry & Neurology Psychiatry
DX: T39.1X2A Poisoning by 4-Aminophenol derivatives, intentional self-harm, initial encounter (principal); G92 Toxic encephalopathy; Y92.003 Bedroom of unspecified non-institutional (private) residence as the place of occurrence of the external cause; I44.1 Atrioventricular block, second degree; I10 Essential (primary) hypertension; F15.10 Other stimulant abuse, uncomplicated; F11.10 Opioid abuse, uncomplicated; R40.2412 Glasgow coma scale score 13-15, at arrival to emergency department; Z91.5 Personal history of self-harm; Z81.8 Family history of other mental and behavioral disorders; T40.602A Poisoning by unspecified narcotics, intentional self-harm, initial encounter; E66.9 Obesity, unspecified; Z68.29 Body mass index [BMI] 29.0-29.9, adult
CPT/HCPCS: 12345; 36415; 36600; 51702; 70450; 71045; 80051; 80053; 80156; 80164; 80178; 80185; 80306; 80307; 81003; 82009; 82550; 82810; 83605; 83735; 83986; 84100; 84145; 84443; 84484; 84703; 85025; 85610; 85730; 93005; 94640; 94664; 96372; 99284; J1650; J2310; J3535; J7030

== ENCOUNTER 2020-07-14 08:50 | Emergency (ER) | payer SELFPAY ==
[2020-07-14] VITALS (7 sets, daily range): BP systolic 101–156; BP diastolic 69–86; PULSE 73–111; RESP 14–25; TEMP 36.6–36.9; O2SAT 92–100; BMI 25.4; BMI 33.9
--- NOTE | 2020-07-14 09:11 | XR_ITS ---
WS: [id number] XR chest 1V portable [id number] REASON FOR EXAM: dyspnea/cough FINDINGS: Compared to previous examinations of 06/13/2020 and 06/14/2020. There is subtle increased opacity in the medial right lower lung field. In addition there is vague increased opacity in the periphery of t he left lower lung field and near image region on the right. This in part may be due to overlying sof t tissue however clearly there is a difference compared to the previous examination. No other interval change or new finding is noted. XR/XR chest 1V portable [id number] IMPRESSION: Suspect early changes of pneumonitis. Follow-up chest x-ray is recommended.
--- NOTE | 2020-07-14 09:19 | CT_ITS ---
WS: [id number] CT ABDOMEN PELVIS TECHNIQUE: Contrast-enhanced CT of the abdomen and pelvis with coronal and sagittal reformatted image s. CLINICAL INFORMATION: abd pain COMPARISON: None. DLP: 587.[address] scans at [facility] use at least one of these dose optimization techniques: automat ed exposure control; mA and/or kV adjustment per patient size (includes targeted exams where dose is matched to clinical indication); or iterative reconstruction. FINDINGS: Mild diffuse fatty infiltration of the liver. Cholecystectomy clips. Adrenal glands are normal. Kacey l renal parenchymal enhancement. Cortical scarring right kidney. Lung bases are well aerated. Normal caliber abdominal aorta. Aortic calcification. No evidence of small or large bowel obstruction. No free fluid in the abdomen or pelvis. No periaorti c lymphadenopathy. No inguinal lymphadenopathy. Prior hysterectomy. Mild disc bulging L4-L5 and L5-S1 . CT/CT abdomen pelvis w con* [id number] IMPRESSION: 1. Prior cholecystectomy and hysterectomy. 2. Normal renal parenchymal enhancement bilaterally. No hydronephrosis. Cortic al scarring right kidney. 3. No free fluid in the abdomen or pelvis. 4. Incidental fat-containing umbilical hernia. 5. No abdominal or pelvic lymphadenopathy. No inguinal lymphadenopathy 6. No acute abdominal or pelvic findings. Attempted notification Willie Orr DO at 07/14/2020 9:59 AM.
[2020-07-14 09:27] LABS: Basophils # 0.1 10^3/uL (0.0-0.1); Basophils % 0.8 %; Eosinophils # 0.2 10^3/uL (0.0-0.8); Eosinophils % 2.3 %; Hematocrit 45.6 % (37.0-47.0); Hemoglobin 14.9 g/dL (11.5-15.3); Lymphocytes # 2.3 10^3/uL (0.8-4.8); Lymphocytes % 28.6 %; Mean Corpuscular HGB Conc 32.7 g/dL (30.0-36.0); Mean Corpuscular Hemoglobin 29.9 pg (28.0-34.0); Mean Corpuscular Volume 91.6 fL (81-99); Mean Platelet Volume 9.8 fL (7.4-10.4); Monocytes # 0.6 10^3/uL (0.2-0.9); Monocytes % 7.8 %; Neutrophils % 60.2 %; Nucleated Red Blood Cells % 0 %; Platelet Count 333 10^3/cmm (130-400); Red Blood Count 4.98 10^6/uL (4.1-5.3); Red Cell Distribution Width 12.6 % (12.1-15.1)
[2020-07-14 09:28] LABS: Add Urine Microscopic? NO
[2020-07-14 09:34] LABS: Urine Appearance Clear (CLEAR); Urine Color Yellow (Yellow); pH Urine 5 (5-7)
[2020-07-14 09:35] LABS: Bilirubin Urine Neg (Negative); Blood Urine Neg (Negative); Glucose Urine UA Norm (Normal); Ketones Urine Negative (Negative); Leukocyte Esterase Urine Negative (Negative); Nitrate Urine Negative (Negative); Protein Urine Neg (Negative); Urobilinogen Urine Norm (Negative)
[2020-07-14] MEDS: iohexol 300 mg/mL 100 mL Btl IV (09:36)
[2020-07-14 09:42] LABS: Alanine Aminotransferase 16 U/L (0-33); Albumin Level 4.5 g/dL (3.5-5.2); Alkaline Phosphatase 108 IU/L (35-105); Anion Gap 15.9 (5-19); Aspartate Amino Transferase 16 U/L (0-32); Blood Urea Nitrogen 13 mg/dL (6-20); Calcium 9.8 mg/dL (8.5-10.5); Carbon Dioxide 25 mmol/L (22-29); Chloride 103 mmol/L (98-107); Glomerular Filtration Rate 76.9 mL/min (90-130); Glucose 70 mg/dL (65-115); Osmolality Calculated 289 mOsm/kg (285-295); Potassium 3.9 mmol/L (3.5-5.1); Sodium 140 mmol/L (136-145); Total Bilirubin 0.2 mg/dL (0.15-1.2); Total Protein 7.5 g/dL (6.6-8.7)
--- NOTE | 2020-07-14 09:48 | ED_ITS ---
HPI - Abdominal Pain General: Chief Complaint: Abdominal Pain Stated Complaint: ABD pain/Right side Time Seen by Provider: 07/14/20 08:57 History of Present Illness: HPI narrative: 45-year-old female comes in complaining of sudden onset of lower right lower quadrant pain that began a couple of hours ago. She had been nauseated for the last 2 days but no real abdominal pain she has some mild dysuria. She has not eaten since last night at 10:00 she has significant anorexia this morning she is noticed that you have the small bumps in the road as she was driving that she had severe pain. She denies any diarrhea she not had any vomiting although she is extremely nauseous. Previous surgeries include cholecystectomy and hysterectomy she still has her appendix. MD elicited complaint: abdominal pain Pertinent past history: other (Cholecystectomy and hysterectomy in the past) Onset (ago): hour(s) Location: RLQ Severity: severe Quality: cramping and stabbing Radiation: none Migration to: no migration Exacerbating factors: movement Relieving factors: rest Associated Symptoms: Reports GI cramping, dysuria and nausea; Denies anorexia, belching, bloating, change in bowel habits, change in stool character, chills, coffee ground emesis, constipation, diarrhea, dyspepsia, excessive flatus, fever(s), heartburn, hematochezia, hematuria, hematemesis, fecal incontinence, loose stools, melena, poor appetite, syncope and vomiting Review of Systems Const: Denies: fever(s) or chills Card: Denies: syncope GI: Reports: nausea and GI cramping; Denies: vomiting, hematemesis, coffee ground emesis, heartburn, diarrhea, constipation, bloating, belching, excessive flatus, fecal incontinence, change in bowel habits, change in stool character, hematochezia or melena : Reports: dysuria; Denies: hematuria PFSH ED PFSH: Medical History Amphetamine abuse Asthma Brain tumor HTN (hypertension) Seizures Surgical History History of cholecystectomy History of hysterectomy Physical Exam Const: COMMON NORMALS: no acute distress GENERAL APPEARANCE: cooperative and comfortable ORIENTATION/CONSCIOUSNESS: Yes awake, Yes oriented to person, Yes oriented to place and Yes oriented to time HENMT: COMMON NORMALS: normocephalic, atraumatic and hearing grossly normal bilaterally HEAD & SCALP: normocephalic and atraumatic Eye: COMMON NORMALS: Equal, round and reactive pupils present, EOMs intact bilaterally, conjunctivae normal and no scleral icterus CONJUNCTIVA: Yes conjunctivae normal PUPIL: Yes Equal, round and reactive pupils present Neck/C-Spine: COMMON NORMALS: full ROM, no lymphadenopathy, supple and no JVD Lymph: LYMPHATIC: no lymphadenopathy noted and no lymphedema noted Resp: COMMON NORMALS: normal respiratory effort, No retractions, No use of accessory muscles and clear to auscultation bilaterally AUSCULTATION: clear to auscultation bilaterally Cardio: COMMON NORMALS: no JVD, regular rate, regular rhythm and No murmurs present (Cardio) RATE: regular rate RHYTHM: regular rhythm GI: COMMON NORMALS: No hepatosplenomegaly present AUSCULTATION: Yes normoactive bowel sounds PALPATION: Yes Tenderness to palpation present (GI), Yes Guarding due to palpation present (GI) in the RLQ and Yes No hepatosplenomegaly present Extremity: COMMON NORMALS: normal to inspection, capillary refill normal, no clubbing, cyanosis or edema, no calf tenderness and no pedal edema Neuro: SENSORIUM/ORIENTATION: Yes oriented to person, Yes oriented to place and Yes oriented to time Skin: COMMON NORMALS: no rashes or lesions noted GENERAL SKIN EXAM: no rashes or lesions noted Course Vital Signs: Vital signs: Vital Signs Temperature 98.5 F 07/14/20 09:41 Pulse Rate 78 07/14/20 14:11 Respiratory Rate 18 07/14/20 14:11 Blood Pressure 101/69 07/14/20 14:11 Pulse Oximetry 98 07/14/20 14:11 MDM - Abdominal Pain MDM Narrative: Medical decision making narrative: CT of the abdomen negative. We will go ahead and discharge home it does appear some of this is due to constipation. Incidental findings of right breast mass that will need further work-up will arrange after case management. She also has a lung nodule that needs follow-up in 6 months discussed all of this with her at the time of discharge. Lab Data: Labs: Lab Results 07/14/20 07/14/20 07/14/20 Range/Units 09:18 09:18 09:18 WBC 8.0 (4.0-10.0) 10^3/ uL RBC 4.98 (4.1-5.3) 10^6/u L Hgb 14.9 (11.5-15.3) g/dL Hct 45.6 (37.0-47.0) % MCV 91.6 (81-99) fL MCH 29.9 (28.0-34.0) pg MCHC 32.7 (30.0-36.0) g/dL RDW 12.6 (12.1-15.1) % Plt Count 333 (130-400) 10^3/c mm MPV 9.8 (7.4-10.4) fL Neut % (Auto) 60.2 % Lymph % (Auto) 28.6 % Buchanan % (Auto) 7.8 % Eos % (Auto) 2.3 % Baso % (Auto) 0.8 % Neut # (Auto) 4.80 (1.8-7.7) 10^3/u L Lymph # (Auto) 2.3 (0.8-4.8) 10^3/u L Buchanan # (Auto) 0.6 (0.2-0.9) 10^3/u L Eos # (Auto) 0.2 (0.0-0.8) 10^3/u L Baso # (Auto) 0.1 (0.0-0.1) 10^3/u L Nucleated RBC % (a uto) 0 % Nucleated RBCs # 0.0 /100WBC Sodium 140 (136-145) mmol/L Potassium 3.9 (3.5-5.1) mmol/L Chloride 103 (98-107) mmol/L Carbon Dioxide 25 (22-29) mmol/L Anion Gap 15.9 (5-19) BUN 13 (6-20) mg/dL Creatinine 0.8 (0.5-0.9) mg/dL GFR Calculation 76.9 L (90-130) mL/min Glucose 70 (65-115) mg/dL Calculated Osmolal ity 289 (285-295) mOsm/k g Calcium 9.8 (8.5-10.5) mg/dL Total Bilirubin 0.2 (0.15-1.2) mg/dL AST 16 (0-32) U/L ALT 16 (0-33) U/L Alkaline Phosphata se 108 H (35-105) IU/L Total Protein 7.5 (6.6-8.7) g/dL Albumin 4.5 (3.5-5.2) g/dL Globulin 3.0 (1.3-4.6) g/dL Urine Color Yellow (Yellow) Urine Appearance Clear (CLEAR) Urine pH 5 (5-7) Ur Specific Gravit y 1.020 (1.005-1.030) Urine Protein Neg (Negative) Urine Glucose (UA) Norm (Normal) Urine Ketones Negative (Negative) Urine Blood Neg (Negative) Urine Nitrate Negative (Negative) Urine Bilirubin Neg (Negative) Urine Urobilinogen Norm (Negative) mg/dL Ur Leukocyte Marisela ase Negative (Negative) Discharge Plan Discharge Patient Disposition: Home Clinical Impression: Abdominal pain, Asthma, Constipation, Breast mass in female, Incidental lung nodule Condition: Stable Prescriptions: No Action amlodipine 5 mg tablet 5 mg PO DAILY Qty: 30 RF: 0 aripiprazole 10 mg Tablet 10 mg PO DAILY 30 Days Qty: 30 RF: 1 sertraline [Zoloft] 100 mg tablet 100 mg PO DAILY Qty: 30 RF: 1 ibuprofen 200 mg Capsule 600 - 800 mg PO PRN RF: 0 albuterol sulfate 90 mcg/actuation HFA aerosol inhaler 2 puff INHALATION QID PRN (Reason: Wheezing) RF: 0 epinephrine [EpiPen 2-Lukasz] 0.3 mg/0.3 mL auto-injector 0.3 mg IM Q30M PRN (Reason: anaphylaxis) Qty: 1 RF: 0 Advair Diskus See Rx Instructions .ROUTE .COMPLEX RF: 0 Discharge Orders: Discharge Order (Routine); Ordered 07/14/20 Ordered By: Willie Orr Discharge Diet: Clear Liquid Discharge Activity: Increase activity as tolerated Patient Instructions: Abdominal Pain (ED) Activity Restrictions/Additional Instructions: CT of your abdomen for the abdominal pain was negative for anything acute. Clear liquid diet x24 to 48 hours and advance as tolerated. You do have a fair amount of retained stool in the colon (constipation), recommend trying iyfe-bdw-heayren laxatives. There is an incidental finding of some breast tissue thickening on the right breast at the time of your CT these need to be followed up with a mammogram on an outpatient basis Case management will call to arrange for this. There was also an abnormality in the right lower lobe of your lung that needs a 6-month follow-up with CT. Coding Level of Care Code ED Vulcan Crewmember for Edward Fwd Exam Comprehensive
[2020-07-14] MEDS: morphine 4 mg/mL SDV 1 mL IVP (09:56)
[2020-07-14] MEDS: sodium chloride 0.9% 1,000 ML 999 ML IV (09:56)
[2020-07-14] MEDS: ondansetron 2 mg/ML SDV 2 mL 4 MG IVP (09:56)
--- NOTE | 2020-07-14 11:06 | CT_ITS ---
WS: [id number] CTA OF THE CHEST WITH PULMONARY EMBOLISM PROTOCOL TECHNIQUE: High-resolution contrast enhanced CTA of the chest with coronal and sagittal reformatted i mages with pulmonary embolism protocol. MIP images are also reviewed. CLINICAL INFORMATION: abd pain/dyspnea COMPARISON: None. DLP: 540.[address] scans at [facility] use at least one of these dose optimization techniques: automat ed exposure control; mA and/or kV adjustment per patient size (includes targeted exams where dose is matched to clinical indication); or iterative reconstruction. FINDINGS: Proximal main pulmonary arteries are normal. Normal segmental and subsegmental pulmonary arteries. No evidence for pulmonary embolus. Aortic calcification. No mediastinal or hilar lymphadenopathy. Lungs are well aerated. No acute pulmo nary infiltrates. No focal pneumonia or pleural fluid. Small fibrotic opacity right lower lobe measur ing 5 mm. No mediastinal or hilar lymphadenopathy. No axillary lymphadenopathy. Adrenal glands are normal. Cholecystectomy clips.Diffuse dense nodular parenchymal tissue right breas t asymmetric compared to the left. Recommend bilateral diagnostic mammogram. CT/CT angio chest PE protcl [id number] IMPRESSION: 1. No evidence of pulmonary embolus. 2. Mild chronic emphysematous changes. No acute pulmonary infiltrates. 3. Small fibrotic opacity right lower lobe measuring 5 mm. Recommend 6 month f ollow-up. 4. No mediastinal or hilar lymphadenopathy. 5. Diffuse dense nodular parenchymal tissue right breast asymmetric compared t o the left. Recommend bilateral diagnostic mammogram. 6. No other significant findings.
[2020-07-14] MEDS: iohexol 350 mg/mL 100 mL Btl IV (12:09)
--- NOTE | 2020-07-15 13:16 | DCPLANNER ---
r d manager was asked to schedule an out patient mammogram and a follow up with primary care physician. r d manager spoke with patient, she stated that she just moved to the area, and does not have a primary care physician. r d manager will get patient set up at [facility], with Dr. Booker, after patient has the mammogram so that physician can go over results with patient. Patient stated that she does not have a phone, but that she can get a phone to use. r d manager told patient to call the case packer and sealer on Monday, 07.17.20, to get appointment information. r d manager faxed order for mammogram to centralized scheduling. r d manager also called centralized scheduling, spoke with Flavia, and explained that patient does not have a phone and that patient is to call case packer and sealer for appointment information. When a mammogram is scheduled, case packer and sealer will schedule a follow up appointment for patient with Dr. Mcqueen.
--- NOTE | 2020-07-16 11:31 | DCPLANNER ---
Patient has a mammogram scheduled for Monday, July 27, 2020 at 9:30. Patient is not to wear any lotions, perfumes, powders or deodorant. home health care case manager also called [facility], spoke with Katty, a follow up appointment was scheduled for Tuesday, July 28, 2020 at 11:[address] Tidwell. Patient is to call showcase maker on Monday, 07.17.20 to get appointment information., due to patient not having a phone and having to borrow a phone.
--- NOTE | 2020-07-22 15:29 | DCPLANNER ---
Patient called correctional casework specialist, and got appointment informations.
--- NOTE | 2020-08-18 12:20 | DCPLANNER ---
Patient had a mammogram scheduled for 07.27.20 - patient attended Patient had a follow up appointment scheduled for 07.28.20 with [facility] family medicine - patient did attend appointment.
== END 2020-07-14 14:13 | disposition home or self-care (01) ==
PROVIDERS: Emergency Provider Family Medicine
DX: R10.31 Right lower quadrant pain (principal); K59.00 Constipation, unspecified; J45.909 Unspecified asthma, uncomplicated; N63.10 Unspecified lump in the right breast, unspecified quadrant; R91.1 Solitary pulmonary nodule; Z79.1 Long term (current) use of non-steroidal anti-inflammatories (NSAID); I10 Essential (primary) hypertension
CPT/HCPCS: 12345; 71045; 71275; 74177; 80053; 81003; 85025; 96361; 96374; 96375; 99283; 99284; J0131; J2270; J2405; J7030; Q9967

== ENCOUNTER 2020-07-27 09:25 | Outpatient (CLI) | payer SELFPAY ==
--- NOTE | 2020-07-27 09:32 | MM_ITS ---
WS: [id number] BILATERAL DIGITAL DIAGNOSTIC MAMMOGRAM MAMMOGRAPHY WITH CAD CLINICAL INFORMATION: RT BREAST MASS right breast lump. Black nipple discharge right breast 9 years TECHNIQUE: Bilateral CC, MLO, and ML views. FINDINGS: Scattered fibroglandular densities bilaterally. Asymmetric dense breast tissue upper quadrant right b reast 12:00 position. Additional ovoid focal asymmetric density upper outer right breast measuring 7 mm. Ultrasound is pending. Left breast is unremarkable. ULTRASOUND BREAST RIGHT TECHNIQUE: Ultrasound right breast focused area of concern. CLINICAL INFORMATION: RT BREAST MASS COMPARISON: None. FINDINGS: Ultrasound 12:00 and 9:00 positions. Dense parenchyma tissue at the 12:00 position has a be nign appearance. Hypoechoic lesion at the 9:00 position measuring 7.6 x 6.2 x 2.2 mm likely represent s a complex cyst or incidental lymph node with fatty hilum. This is probably benign and recommend 6 m onth follow-up to confirm stability considering no prior comparisons. No other suspicious findings. MM/[place] [id number] IMPRESSION: BI-RADS: 3-Probably Benign FOLLOW UP: 6 Month Follow-up RECOMMEND 6 MONTH FOLLOW-UP RIGHT DIAGNOSTIC MAMMOGRAPHY AND ULTRASOUND TO CONF IRM STABILITY.
--- NOTE | 2020-07-27 10:16 | US_ITS ---
WS: [id number] BILATERAL DIGITAL DIAGNOSTIC MAMMOGRAM MAMMOGRAPHY WITH CAD CLINICAL INFORMATION: RT BREAST MASS right breast lump. Black nipple discharge right breast 9 years TECHNIQUE: Bilateral CC, MLO, and ML views. FINDINGS: Scattered fibroglandular densities bilaterally. Asymmetric dense breast tissue upper quadrant right b reast 12:00 position. Additional ovoid focal asymmetric density upper outer right breast measuring 7 mm. Ultrasound is pending. Left breast is unremarkable. ULTRASOUND BREAST RIGHT TECHNIQUE: Ultrasound right breast focused area of concern. CLINICAL INFORMATION: RT BREAST MASS COMPARISON: None. FINDINGS: Ultrasound 12:00 and 9:00 positions. Dense parenchyma tissue at the 12:00 position has a be nign appearance. Hypoechoic lesion at the 9:00 position measuring 7.6 x 6.2 x 2.2 mm likely represent s a complex cyst or incidental lymph node with fatty hilum. This is probably benign and recommend 6 m onth follow-up to confirm stability considering no prior comparisons. No other suspicious findings. US/US breast RT limited* [id number] IMPRESSION: BI-RADS: 3-Probably Benign FOLLOW UP: 6 Month Follow-up RECOMMEND 6 MONTH FOLLOW-UP RIGHT DIAGNOSTIC MAMMOGRAPHY AND ULTRASOUND TO CONF IRM STABILITY.
--- NOTE | 2020-07-29 12:03 | PC.NURSE ---
Tried to contact patient/ life partner several times today to get the pr to come back again for 3rd US of the 9:00 position of the Right breast. No voicemail box, and no ringing. Patient had previously stated she ran out of minutes, and has not bought any more. Unable to reach her or her other contact number. Will try again/mail letter.Carisa CARTER
--- NOTE | 2020-07-29 14:04 | PC.NURSE ---
Mailed letter to pt to contact mammography at earliest convenience.Carisa CARTER
== END 2020-07-27 09:26 | disposition home or self-care (01) ==
LOC: RADSHAW 09:29
PROVIDERS: Visit Provider Family Medicine
DX: N63.15 Unspecified lump in the right breast, overlapping quadrants (principal); N64.52 Nipple discharge; R92.8 Other abnormal and inconclusive findings on diagnostic imaging of breast
CPT/HCPCS: 76642; 77066

== ENCOUNTER 2020-08-17 14:37 | Emergency (ER) | payer SELFPAY ==
[2020-08-17 14:43] VITALS: BP 155/103; PULSE 83; RESP 18; TEMP 36.9; O2SAT 100; BMI 26.4
--- NOTE | 2020-08-17 14:54 | W.ED.EAR ---
HPI - Ear Problem General: Chief complaint: Ear Stated complaint: Pain/Bleeding from Left Ear, Sent from Time Seen by Provider: 08/17/20 14:46 History of Present Illness: HPI Narrative: 45-year-old female comes in complaining of left ear pain with drainage. She is previously had surgery on the left ear. She was recently finished a course of Zithromax and it continues to cause pain and having blood-tinged drainage. Associated symptoms: Reports ear or mastoid pain; Denies fever(s) Review of Systems Const: Denies: fever(s), chills, body aches, change in appetite, fatigue or malaise ENMT: Reports: ear or mastoid pain, ear discharge and change in hearing; Denies: throat pain, nasal discharge or nasal congestion Card: Denies: chest pain, edema, dyspnea on exertion or orthopnea Resp: Denies: dyspnea, productive cough or non-productive cough Skin/Breast: Denies: rash or pruritus PFSH ED PFSH: Medical History Amphetamine abuse Asthma Brain tumor Chronic left ear pain COPD (chronic obstructive pulmonary disease) HTN (hypertension) Seizures Surgical History History of cholecystectomy History of hysterectomy Social History Smoking and tobacco status: current every day smoker cigarettes Packs smoked per day: 1 Alcohol intake: current Alcohol intake frequency: holidays/special occasions only Adopted: No Caregiver/support person: Yes Lives independently: Yes Household members: other Details: LIFE PARTNER Housing: House Marital status: Life Partner service: No Current occupational status: unemployed and previously employed Current gender identity: Female Special ezequiel needs: No Physical Exam Const: COMMON NORMALS: no acute distress GENERAL APPEARANCE: cooperative and comfortable ORIENTATION/CONSCIOUSNESS: Yes awake, Yes oriented to person, Yes oriented to place and Yes oriented to time HENMT: COMMON NORMALS: normocephalic, atraumatic, hearing grossly normal bilaterally, Normal nasal mucous membranes and turbinates present, moist oral mucous membranes and oropharynx normal HEAD & SCALP: normocephalic and atraumatic NOSE: Normal nasal mucous membranes and turbinates present TYMPANIC MEMBRANE: TM abnormal TM laterality: left (Blood-tinged clear serous fluid drainage from the TM. I cannot visualize a perforation there does appear to be purulent fluid behind the TM. Canal itself is mildly inflamed.) Eye: COMMON NORMALS: Equal, round and reactive pupils present, EOMs intact bilaterally, conjunctivae normal and no scleral icterus CONJUNCTIVA: Yes conjunctivae normal PUPIL: Yes Equal, round and reactive pupils present Neck/C-Spine: COMMON NORMALS: full ROM, no lymphadenopathy, supple and no JVD Lymph: LYMPHATIC: no lymphadenopathy noted and no lymphedema noted Resp: COMMON NORMALS: normal respiratory effort, No retractions, No use of accessory muscles and clear to auscultation bilaterally AUSCULTATION: clear to auscultation bilaterally Cardio: COMMON NORMALS: no JVD, regular rate, regular rhythm and No murmurs present (Cardio) RATE: regular rate RHYTHM: regular rhythm Neuro: SENSORIUM/ORIENTATION: Yes oriented to person, Yes oriented to place and Yes oriented to time Course Vital Signs: Vital signs: Vital Signs Temperature 98.4 F 08/17/20 14:43 Pulse Rate 70 08/17/20 15:07 Respiratory Rate 16 08/17/20 15:07 Blood Pressure 155/103 08/17/20 14:43 Pulse Oximetry 100 08/17/20 14:43 MDM - Ear MDM Narrative: Medical decision making narrative: Start cefdinir also gave hydrocodone for pain will have case management get her set up for ENT for follow-up. Discharge Plan Discharge Patient Disposition: Home Clinical Impression: Otitis media Condition: Stable Prescriptions: New cefdinir 300 mg capsule 300 mg PO BID 10 Days Qty: 20 RF: 0 [id number]-lcwvnp-OK-thonzonium 3.3-3-10-0.5 mg/mL drops,suspension 4 drp otic (ear) QID 10 Days Qty: 10 RF: 0 hydrocodone-acetaminophen 5-325 mg tablet 1 tab PO Q6H PRN (Reason: pain) Qty: 10 RF: 0 No Action fluticasone propion-salmeterol [Advair Diskus] 250-50 mcg/dose blister with device 1 inh inhalation BID Qty: 60 RF: 3 albuterol sulfate 90 mcg/actuation HFA aerosol inhaler 2 puff INHALATION QID PRN (Reason: Wheezing) Qty: 18 RF: 5 sertraline [Zoloft] 100 mg tablet 100 mg PO DAILY Qty: 30 RF: 3 azithromycin 250 mg tablet See Rx Instructions PO .COMPLEX Qty: 6 RF: 0 aripiprazole 10 mg Tablet 10 mg PO DAILY 30 Days Qty: 30 RF: 1 ibuprofen 200 mg Capsule 600 - 800 mg PO PRN RF: 0 epinephrine [EpiPen 2-Lukasz] 0.3 mg/0.3 mL auto-injector 0.3 mg IM Q30M PRN (Reason: anaphylaxis) Qty: 1 RF: 0 Discharge Orders: Discharge ED (Routine); Ordered 08/17/20 Ordered By: Willie Orr Referrals: Js Tidwell MD [Primary Care Provider] - Discharge Diet: Usual diet Discharge Activity: Increase activity as tolerated Activity Restrictions/Additional Instructions: Case management will call to help you get his referral to an ear nose and throat doctor. Coding Level of Care Code ED Management Trainee Marketing for Edward Chapin
[2020-08-17 15:07] VITALS: PULSE 70; RESP 16
--- NOTE | 2020-08-18 09:58 | DCPLANNER ---
wireless store manager had message to schedule a follow up appointment for patient with ENT. wireless store manager emailed Kevin at [facility] General Surgery patients information. Patients information will be printed and reviewed. Clinic will call patient with appointment information.
--- NOTE | 2020-08-20 12:46 | DCPLANNER ---
[facility] General Surgery contacted bilingual patient support caseworker and was told that the clinic was unable to contact patient to schedule a follow up appointment.
== END 2020-08-17 15:08 | disposition home or self-care (01) ==
PROVIDERS: Emergency Provider Family Medicine; PCP Family Medicine Adult Medicine
DX: H66.92 Otitis media, unspecified, left ear (principal); J44.9 Chronic obstructive pulmonary disease, unspecified; I10 Essential (primary) hypertension; F17.210 Nicotine dependence, cigarettes, uncomplicated
CPT/HCPCS: 12345; 99281

== ENCOUNTER 2020-10-16 01:23 | Emergency (ER) | payer SELFPAY ==
[2020-10-16 01:31] VITALS: BP 162/98; PULSE 99; RESP 16; TEMP 36.7; O2SAT 100; BMI 22.6
--- NOTE | 2020-10-16 01:48 | ED_ITS ---
HPI - Ear Problem General: Chief complaint: Ear Stated complaint: bleeding in left ea Time Seen by Provider: 10/16/20 01:38 Source: patient Mode of arrival: ambulatory Limitations: no limitations History of Present Illness: HPI Narrative: Patient is a 45-year-old female presents to ED today with a complaint of left ear pain. Patient tells me she has a history of 5 surgeries on her left ear for cholesteatoma's. Last surgery was performed in [place] approximately a year ago. She has since followed up with Dr. Segovia. Patient tells me she is supposed to be taking Ciprodex however when she went to fill the prescription-cost is over $300 so she has been without this medication. Patient is in tears over how much pain and discomfort she is in. She states it is significantly interfering with her daily life. Ear has chronically drained. Complaint: ear pain and ear discharge Location: left ear Duration: constant Severity: severe Relieving factors: nothing Discharge from ear: yes - clear Associated symptoms: Reports no associated symptoms and ear or mastoid pain; Denies fever(s), headache(s) or neck pain Treatment prior to arrival: oral analgesic (tylenol and ibuprofen) Review of Systems Const: Denies: fever(s), chills, body aches, fatigue or malaise Eyes: Denies: change in vision, blurry vision, photophobia, floaters or seeing flashes ENMT: Reports: ear or mastoid pain and ear discharge; Denies: throat pain, enlarged tonsils, odynophagia, change in hearing, disequilibrium, nasal discharge, nasal congestion, nasal obstruction or epistaxis Card: Denies: chest pain Resp: Denies: dyspnea GI: Denies: nausea or vomiting Musc: Denies: neck pain Skin/Breast: Denies: rash Neuro: Denies: headache(s) PFSH ED PFSH: Medical History Amphetamine abuse Asthma Brain tumor Chronic left ear pain COPD (chronic obstructive pulmonary disease) HTN (hypertension) Seizures Surgical History History of cholecystectomy History of hysterectomy Social History Smoking and tobacco status: current every day smoker cigarettes Packs smoked per day: 1 Years cigarettes smoked: 30 Second hand smoke exposure: Yes Alcohol intake: current Alcohol intake frequency: 0-2 Drinks per Day Alcohol type: hard liquor Adopted: No Caregiver/support person: Yes Lives independently: Yes Household members: other Details: [employer] Housing: House Marital status: Life Partner service: No Current occupational status: unemployed and previously employed History of recent travel: No Current gender identity: Female Special ezequiel needs: No Physical Exam Const: COMMON NORMALS: average body habitus, patient oriented x3, no limitations, healthy appearing, alert and well nourished GENERAL APPEARANCE: cooperative and other (tearful ) ORIENTATION/CONSCIOUSNESS: Yes awake, Yes oriented to person, Yes oriented to place and Yes oriented to time HENMT: COMMON NORMALS: normocephalic, atraumatic and Normal external nose present HEAD & SCALP: normal to inspection, normocephalic and atraumatic FACE & SINUS: normal facial exam and sinuses nontender NOSE: Normal external nose present EXTERNAL EAR: Yes no periauricular adenopathy TYMPANIC MEMBRANE: other (see below) OTHER: pt with inflammation and white discharge throughout her L EAC; TM could not be visualized due to amount of debris and pt intolerance due to pain; no mastoid tenderness or redness Neck/C-Spine: COMMON NORMALS: full ROM, no lymphadenopathy and no meningeal signs Neuro: LIZBETH COMA SCALE: document GCS findings [place] coma scale eye opening: Spontaneous [place] coma scale verbal response: Orientated [place] coma scale motor response: Obey commands [place] coma scale total score: 15 COMMON NORMALS: patient oriented x3 and CN's II-XII intact bilaterally SENSORIUM/ORIENTATION: Yes alert, Yes oriented to person, Yes oriented to place and Yes oriented to time MENINGEAL SIGNS: Yes no meningeal signs Course Vital Signs: Vital signs: Vital Signs Temperature 98.1 F 10/16/20 01:31 Pulse Rate 95 10/16/20 02:19 Respiratory Rate 18 10/16/20 02:19 Blood Pressure 135/91 10/16/20 02:19 Pulse Oximetry 100 10/16/20 02:19 MDM - Ear MDM Narrative: Medical decision making narrative: Patient states ultimately she just wants the Ciprodex as she has had this before and it helps tremendously. I will call pharmacy and try to get her a bottle here. Will give her a short amount of pain medications-she knows this won't be refilled and is just enough to last her until the Ciprodex begins to help. I will place her information with case management to get her back to see Dr. Segovia for further management. Discharge Plan Discharge Patient Disposition: Home Clinical Impression: Cholesteatoma of attic of left ear Condition: Stable Prescriptions: New hydrocodone-acetaminophen 5-325 mg tablet 1 tab PO Q6H PRN (Reason: pain) Qty: 14 RF: 0 No Action albuterol sulfate 90 mcg/actuation HFA aerosol inhaler 2 puff INHALATION QID PRN (Reason: Wheezing) Qty: 18 RF: 5 ibuprofen 200 mg Capsule 600 - 800 mg PO PRN RF: 0 Discharge Orders: Discharge ED (Routine); Ordered 10/16/20 Ordered By: Patricia Campoverde Referrals: Js Tidwell MD [Primary Care Provider] - Candido Segovia MD [Physician] - Patient Instructions: Opioid Safety Activity Restrictions/Additional Instructions: [facility] is committed to fighting the nationwide opiate epidemic. We are providing ALL patients with information regarding opiate safety. If you received opiate pain medication during your stay or if you received a prescription for opiate pain medication-please review this handout. If not, you may disregard. Thank you. As we discussed case management should contact you shortly to set you up with an appointment to see Dr. Segovia. Coding Level of Care Code ED Building Inspection Engineer for Edward Fwd Exam Expanded Problem Focused
[2020-10-16] MEDS: HYDROcodone-acetaminophen 5-325 mg Tablet 1 TAB PO (01:55)
[2020-10-16] MEDS: ciprofloxacin-dexameth Otic Susp 7.5 mL Btl 4 DROP EAR-LEFT (02:14)
[2020-10-16 02:19] VITALS: BP 135/91; PULSE 95; RESP 18; O2SAT 100
--- NOTE | 2020-10-16 09:51 | DCPLANNER ---
bookkeeping manager had message to schedule a follow up appointment for patient with ENT. bookkeeping manager emailed patients information to both Lexii and Edna at [facility]. Patients information will be printed and reviewed. Clinic will call patient with appointment information.
--- NOTE | 2020-10-21 10:58 | DCPLANNER ---
Patient had a follow up appointment scheduled for 10.19.20 with ENT - patient did not attend appointment.
== END 2020-10-16 02:20 | disposition home or self-care (01) ==
PROVIDERS: Emergency Provider Physician Assistant; PCP Family Medicine Adult Medicine
DX: H71.02 Cholesteatoma of attic, left ear (principal); J44.9 Chronic obstructive pulmonary disease, unspecified; I10 Essential (primary) hypertension; F17.210 Nicotine dependence, cigarettes, uncomplicated
CPT/HCPCS: 99283

== ENCOUNTER 2021-08-27 13:32 | Emergency (ER) | payer SELFPAY ==
[2021-08-27 13:52] VITALS: BP 151/101; PULSE 96; RESP 16; TEMP 36.7; O2SAT 98
--- NOTE | 2021-08-27 14:06 | W.ED.EAR ---
HPI - Ear Problem General: Chief complaint: Ear Stated complaint: left ear pains and draining Time Seen by Provider: 08/27/21 13:38 History of Present Illness: HPI Narrative: Patient presents with left ear pain with drainage last few days. Patient has a history of chronic ear problems on that side and is had multiple surgeries. Patient also has a history of MRSA infection. MD Complaint: ear pain and ear discharge Location: left ear Duration: constant Severity: moderate Relieving factors: ear drops Associated symptoms: Reports no associated symptoms and ear or mastoid pain; Denies fever(s) or headache(s) Review of Systems Const: Denies: fever(s), chills or body aches Eyes: Denies: change in vision or blurry vision ENMT: Reports: ear or mastoid pain and ear discharge; Denies: throat pain or nasal congestion Card: Denies: chest pain or dyspnea on exertion Resp: Denies: dyspnea, productive cough or non-productive cough GI: Denies: abdominal pain, nausea or vomiting Musc: Denies: extremity pain Skin/Breast: Denies: rash Neuro: Denies: headache(s) Psych: Denies: anxiety or depression Delmar/Lymph: Denies: easy bruising PFSH ED PFSH: Medical History Amphetamine abuse Asthma Brain tumor Chronic left ear pain COPD (chronic obstructive pulmonary disease) HTN (hypertension) Seizures Surgical History History of cholecystectomy History of hysterectomy Social History Smoking and tobacco status: current every day smoker cigarettes Packs smoked per day: 1 Years cigarettes smoked: 30 Second hand smoke exposure: Yes Alcohol intake: current Alcohol intake frequency: 0-2 Drinks per Day Alcohol type: hard liquor Adopted: No Caregiver/support person: Yes Lives independently: Yes Household members: other Details: [employer] Housing: House Marital status: Life Partner service: No Current occupational status: unemployed and previously employed History of recent travel: No Current gender identity: Female Special ezequiel needs: No Physical Exam Const: COMMON NORMALS: no acute distress GENERAL APPEARANCE: cooperative HENMT: EXTERNAL AUDITORY CANAL: Abnormal EAC present EAC laterality: left Details: erythema and EAC tenderness TYMPANIC MEMBRANE: TM abnormal TM laterality: left Details: bulging, erythematous, loss of landmarks and scarred THROAT: posterior oropharynx normal Psych: COMMON NORMALS: mental status grossly normal APPEARANCE: Yes grossly normal Course Vital Signs: Vital signs: Vital Signs Temperature 98.1 F 08/27/21 13:52 Pulse Rate 96 08/27/21 13:52 Respiratory Rate 16 08/27/21 13:52 Blood Pressure 151/101 08/27/21 13:52 Pulse Oximetry 98 08/27/21 13:52 Discharge Plan Discharge Patient Disposition: Home Clinical Impression: Chronic left ear pain Condition: Stable Prescriptions: New Bactrim DS 800-160 mg tablet 1 tab PO BID 7 Days Qty: 14 RF: 0 ciprofloxacin HCl 0.2 % dropperette 5 drp otic (ear) BID 7 Days Qty: 14 RF: 0 No Action albuterol sulfate 90 mcg/actuation HFA aerosol inhaler 2 puff INHALATION QID PRN (Reason: Wheezing) Qty: 18 RF: 5 hydrocodone-acetaminophen 5-325 mg tablet 1 tab PO Q6H PRN (Reason: pain) Qty: 14 RF: 0 ibuprofen 200 mg Capsule 600 - 800 mg PO PRN RF: 0 Discharge Orders: Discharge ED (Routine); Ordered 08/27/21 Ordered By: Chavez Morse Referrals: Js Tidwell MD [Primary Care Provider] - Discharge Diet: Usual diet Discharge Activity: Increase activity as tolerated Activity Restrictions/Additional Instructions: Follow-up with medical provider as directed. Take medications as prescribed. Return to the ER or your medical provider if condition worsens. Please read and understand discharge instructions. If any questions ask please. Can use Cipro drops to help with discomfort in the ear and can take Tylenol 1000 mg four times a day for discomfort. Stand Alone Forms: Work/School Release Coding Level of Care Code ED Superintendent [employer] for Edward Chapin
[2021-08-27] MEDS: CELEcoxib 200 mg Capsule 400 MG PO (14:15)
[2021-08-27] MEDS: sulfamethoxazole-trimeth DS 160-800 mg Tablet 1 TAB PO (14:15)
[2021-08-27 14:23] VITALS: BP 151/101; PULSE 96; RESP 16; O2SAT 98
== END 2021-08-27 14:25 | disposition home or self-care (01) ==
PROVIDERS: Emergency Provider Nurse Practitioner Family; PCP Family Medicine Adult Medicine
DX: H92.02 Otalgia, left ear (principal); F17.210 Nicotine dependence, cigarettes, uncomplicated; Z79.891 Long term (current) use of opiate analgesic
CPT/HCPCS: 99283